=== PATIENT | female | born 1970 | race Caucasian/White ===

== ENCOUNTER → 2016-05-10 | Outpatient (CLI) | payer OTHER ==
[~2016-05-10] VITALS: Ht 165.1 cm; Wt 63.8 kg
[~2016-05-10] MED LIST: CRESTOR PO; IBUP600T26 PO; METF500T PO; MIDAZOLAM INJ 2 MG/2 ML VIAL (J2250) As Ordered ONE; NORCOTAB PO; NS 1,000 ML IV SCH; PROPOFOL 200 MG/20 ML VIAL As Ordered ONE; SIMV20TA2 PO; VITA500047 PO
--- NOTE | 2016-05-10 13:00 | ROOR ---
Patient Name: An Mercer Procedure Date: 05/10/2016 12:29 PM Date of : 1970 Age: 45 Room: [facility] Gender: Female Note Status: Finalized Procedure: Upper GI endoscopy Indications: Suspected Chavis's esophagus Providers: Khadar Collins DO Referring MD: SHAHNAZ MATAMOROS MD, GUANAKO GARZON NP Requesting Provider: Medicines: Propofol per Anesthesia Complications: No immediate complications. Estimated blood loss: None. Procedure: Pre-Anesthesia Assessment: - Prior to the procedure, a History and Physical was performed, and patient medications and allergies were reviewed. The patient is competent. The risks and benefits of the procedure and the sedation options and risks were discussed with the patient. All questions were answered and informed consent was obtained. Patient identification and proposed procedure were verified by the physician, the nurse, the anesthesiologist and the traffic technician in the endoscopy suite. Mental Status Examination: alert and oriented. Airway Examination: normal oropharyngeal airway and neck mobility. Respiratory Examination: clear to auscultation. CV Examination: normal. Prophylactic Antibiotics: The patient does not require prophylactic antibiotics. Prior Anticoagulants: The patient has taken no previous anticoagulant or antiplatelet agents. ASA Grade Assessment: III - A patient with severe systemic disease. After reviewing the risks and benefits, the patient was deemed in satisfactory condition to undergo the procedure. The anesthesia plan was to use monitored anesthesia care (MAC). Immediately prior to administration of medications, the patient was re-assessed for adequacy to receive sedatives. The heart rate, respiratory rate, oxygen saturations, blood pressure, adequacy of pulmonary ventilation, and response to care were monitored throughout the procedure. The physical status of the patient was re-assessed after the procedure. The Endoscope was introduced through the mouth, and advanced to the second part of duodenum. The upper GI endoscopy was accomplished without difficulty. The patient tolerated the procedure well. Findings: Mildly severe esophagitis with bleeding was found. Biopsies were taken with a cold forceps for histology. Mucosa was biopsied with a cold forceps for histology in 3 sections at intervals of 1 cm at the gastroesophageal junction. One specimen bottle was sent to pathology. Estimated blood loss was minimal. Diffuse mild inflammation characterized by congestion (edema) was found in the prepyloric region of the stomach. Biopsies were taken with a cold forceps for Helicobacter pylori testing. A small hiatal hernia was present. Impression: - Mildly severe esophagitis. Biopsied. - Gastritis. Biopsied. Recommendation: - Patient has a contact number available for emergencies. The signs and symptoms of potential delayed complications were discussed with the patient. Return to normal activities tomorrow. Written discharge instructions were provided to the patient. - Await pathology results. - Telephone my office for pathology results in 1 week. Khadar Collins DO 05/10/2016 1:00:18 PM This report has been signed electronically. Number of Addenda: 0 Note Initiated On: 05/10/2016 12:29 PM Estimated Blood Loss: Estimated blood loss: none.
[2016-05-10 13:25] VITALS: BP 120/70
== END ==
LOC: M OPP 11:33
PROVIDERS: ATTEND Surgery
DX: K21.9 Gastro-esophageal reflux disease without esophagitis (principal); R12 Heartburn; K20.9 Esophagitis, unspecified; K29.70 Gastritis, unspecified, without bleeding; K44.9 Diaphragmatic hernia without obstruction or gangrene; E78.5 Hyperlipidemia, unspecified; E11.9 Type 2 diabetes mellitus without complications; Z88.8 Allergy status to other drugs, medicaments and biological substances; Z79.84 Long term (current) use of oral hypoglycemic drugs; Z79.899 Other long term (current) drug therapy
CPT/HCPCS: 43239; 88305; 99156; J2250

== ENCOUNTER → 2016-05-30 | Outpatient (REF) | payer OTHER ==
[~2016-05-30] MED LIST changes: -MIDAZOLAM INJ 2 MG/2 ML VIAL (J2250) As Ordered ONE; -NS 1,000 ML IV SCH; -PROPOFOL 200 MG/20 ML VIAL As Ordered ONE
== END ==
LOC: M LAB REF 12:28
PROVIDERS: ATTEND Physician Assistant
DX: J02.9 Acute pharyngitis, unspecified (principal)

== ENCOUNTER → 2016-06-12 | Outpatient (CLI) | payer OTHER | LOC: M SLEEP HO 09:10 | PROVIDERS: ATTEND Nurse Practitioner Adult Health | DX: G47.30 Sleep apnea, unspecified (principal) ==

== ENCOUNTER 2016-11-05 17:55 | Emergency (ER) | payer OTHER ==
[~2016-11-05] VITALS: Ht 165.1 cm; Wt 94.0 kg
[~2016-11-05 17:55] MED LIST changes: -METF500T PO; +METF500T13 PO
[2016-11-05] MEDS ORDERED: OMEP20CA3 (18:07)
[2016-11-05] MEDS ORDERED: NS 1,000 ML IV ONE (21:30)
[2016-11-05 22:24] LABS: BASO % 0.3 % (0.0-1.0); EOS # 0.1 K/mm3 (0.0-0.50); EOS % 1.2 % (0.0-3.0); LARGE UNSTAINED CELL # 0.1 K/mm3 (0.0-0.4); LARGE UNSTAINED CELL % 1.9 % (0.0-4.0); LYMPH # 2.2 K/mm3 (1.5-4.5); LYMPH % 26.7 % (24.0-44.0); MEAN CORPUSCULAR HEMOGLOBIN 30.2 pg (27.0-33.0); MEAN CORPUSCULAR HGB CONC 34.6 g/dl (32.0-36.5); MEAN CORPUSCULAR VOLUME 87.2 fl (80.0-96.0); MONO # 0.5 K/mm3 (0.0-0.8); MONO % 6.7 % (0.0-5.0); NEUTROPHILS # 4.8 K/mm3 (1.8-7.7); NEUTROPHILS % 63.2 % (36.0-66.0); PLATELET COUNT, AUTOMATED 264 k/mm3 (150-450); RED CELL DISTRIBUTION WIDTH 12.5 % (11.5-14.5); WHITE BLOOD COUNT 7.6 K/mm3 (4.0-10.0)
[2016-11-05 22:34] LABS: ALBUMIN 4.4 GM/DL (3.2-5.2); ALBUMIN/GLOBULIN RATIO 1.29 (1.00-1.93); ALKALINE PHOSPHATASE 99 U/L (45-117); ALT/SGPT 101 U/L (12-78); AMYLASE 80 U/L (25-115); ANION GAP 10 MEQ/L (8-16); AST/SGOT 43 U/L (15-37); BILIRUBIN,DIRECT 0.3 MG/DL (0.0-0.2); BLOOD UREA NITROGEN 11 MG/DL (7-18); CALCIUM LEVEL 9.2 MG/DL (8.5-10.1); CARBON DIOXIDE LEVEL 27 MEQ/L (21-32); CHLORIDE LEVEL 97 MEQ/L (98-107); CREATININE FOR GFR 0.67 MG/DL (0.55-1.02); GLOMERULAR FILTRATION RATE > 60.0 (>58); GLUCOSE, FASTING 87 MG/DL (70-105); POTASSIUM SERUM 3.3 MEQ/L (3.5-5.1); SODIUM LEVEL 134 MEQ/L (136-145); TOTAL PROTEIN 7.8 GM/DL (6.4-8.2)
[2016-11-05 23:28] VITALS: BP 124/83
--- NOTE | 2016-11-06 00:33 | REP ---
Clinical: Epigastric and left upper quadrant abdominal pain. Technique: Upright view of the chest with supine and upright views of the abdomen and pelvis. Findings: Frontal upright view of the chest demonstrates no acute cardiopulmonary process or free air below the diaphragm to suspect pneumoperitoneum. Supine and upright views of the abdomen and pelvis demonstrate nonspecific bowel gas pattern without obstruction or perforation. No organomegaly. Calcifications in the pelvis likely represent phleboliths. Skeletal structures normal for age. Impression: Nonspecific bowel gas pattern. Signed by Valentin Metcalf MD 11/06/2016 12:25 A
== END 2016-11-05 23:30 | disposition home or self-care (01) ==
LOC: M ED 17:55
DX: K29.00 Acute gastritis without bleeding (principal); Z98.84 Bariatric surgery status; Z88.1 Allergy status to other antibiotic agents

== ENCOUNTER 2017-03-11 20:34 | Inpatient (IN) | payer OTHER ==
[~2017-03-11] VITALS: Ht 165.1 cm; Wt 65.9 kg
[2017-03-11] MEDS: OMEPRAZOLE 20 MG CAP PO SCH (04:30)
[~2017-03-11 20:34] MED LIST changes: -B-12; -B121000T PO; -BIOT50005 SL; -MULTCAP11 PO; -VITMTA PO
[2017-03-11] MEDS ORDERED: BIOT50005 SL (20:53)
[2017-03-11] MEDS ORDERED: B-12 (20:53)
[2017-03-11] MEDS ORDERED: MULTCAP11 PO (20:53)
[2017-03-11] MEDS: POTASSIUM CHLORIDE 10 MEQ SR TABLET PO ONE ×2 (21:30→22:30)
[2017-03-11 22:18] LABS: BASO % 0.5 % (0.0-1.0); EOS # 0.1 10^3/uL (0.0-0.50); EOS % 1.4 % (0.0-3.0); IMMATURE GRANULOCYTE % 0.2 % (0-0); LYMPH # 2.3 10^3/uL (1.5-4.5); LYMPH % 40.6 % (24.0-44.0); MEAN CORPUSCULAR HEMOGLOBIN 30.2 pg (27.0-33.0); MEAN CORPUSCULAR HGB CONC 34.7 g/dl (32.0-36.5); MEAN CORPUSCULAR VOLUME 86.9 fl (80.0-96.0); MONO # 0.5 10^3/uL (0.0-0.8); MONO % 8.7 % (0.0-5.0); NEUTROPHILS # 2.8 10^3/uL (1.8-7.7); NEUTROPHILS % 48.6 % (36.0-66.0); PLATELET COUNT, AUTOMATED 163 10^3/uL (150-450); RED CELL DISTRIBUTION WIDTH 12.4 % (11.5-14.5); WHITE BLOOD COUNT 5.7 10^3/uL (4.0-10.0)
[2017-03-11 22:42] LABS: ANION GAP 8 MEQ/L (8-16); BLOOD UREA NITROGEN 10 MG/DL (7-18); CALCIUM LEVEL 8.8 MG/DL (8.5-10.1); CARBON DIOXIDE LEVEL 32 MEQ/L (21-32); CHLORIDE LEVEL 102 MEQ/L (98-107); CREATININE FOR GFR 0.45 MG/DL (0.55-1.02); GLOMERULAR FILTRATION RATE > 60.0 (>58); GLUCOSE, FASTING 109 MG/DL (70-105); MAGNESIUM LEVEL 2.3 MG/DL (1.8-2.4); POTASSIUM SERUM 2.9 MEQ/L (3.5-5.1); SODIUM LEVEL 142 MEQ/L (136-145)
[2017-03-11] MEDS ORDERED: POTASSIUM CHLORIDE 10 MEQ SR TABLET PO ONE (23:45)
[2017-03-12 01:59] LABS: ANION GAP 6 MEQ/L (8-16); BLOOD UREA NITROGEN 10 MG/DL (7-18); CALCIUM LEVEL 8.4 MG/DL (8.5-10.1); CARBON DIOXIDE LEVEL 33 MEQ/L (21-32); CHLORIDE LEVEL 102 MEQ/L (98-107); GLOMERULAR FILTRATION RATE > 60.0 (>58); GLUCOSE, FASTING 107 MG/DL (70-105); POTASSIUM SERUM 2.7 MEQ/L (3.5-5.1); SODIUM LEVEL 141 MEQ/L (136-145)
[2017-03-12] MEDS ORDERED: KCL 10MEQ IN 100ML SWI (KRUN) 10 MEQ in APPROPRIATE DILUENT 1 EA IV ONE ×2 (02:30)
[2017-03-12] MEDS ORDERED: B121000T PO (02:40)
[2017-03-12] MEDS ORDERED: VITMTA PO (02:40)
[2017-03-12] MEDS ORDERED: ACETAMINOPHEN TAB 650MG DOSE (2X325MG) PO PRN (03:45)
--- NOTE | 2017-03-12 05:03 | HPE ---
DATE OF ADMISSION: 03/12/2017 The patient, An Mercer, is a 46-year-old female. Patient has a previous medical history of gastric bypass, type 2 diabetes mellitus not currently on treatment for it. This I get from the records. She did not mention this when I asked her. Family history of father with heart disease and mother with diabetes, hypertension. Patient is a nonsmoker, non-drug abuser, does not use alcohol to excess. Patient's surgical history is tubal ligation 1993, hysterectomy in 2013, diverted septum repair in 1989 and the above mentioned gastric bypass. HISTORY OF PRESENT ILLNESS: The patient comes in after being sent by her primary medical doctor (PMD), who did some followup labs and found her potassium to be low. While in the emergency department (ED), patient was found to have a low potassium, initially improved on oral, did not, however, continue to improve. Therefore, is being admitted for intravenous (IV) re-supplementation. REVIEW OF SYSTEMS: Patient has no acute complaints on 10-system review. When I came in to see patient, patient was resting comfortably and in no distress. Temperature is 98.2, pulse 64, respiratory rate 16, blood pressure 119/72, pulse oximetry 100% on room air. First EKG showed aberrant beats. Followup after replacement of potassium is normal sinus rhythm. Patient is alert and oriented times three with normal affect and normal mood. Cranial nerves II-XII grossly intact. Extraocular muscles intact. Pupils equal, round, and reactive to light and accommodation. Neck is supple with no meningeal signs. Patient is S1, S2, regular rate. No murmur, rub or gallop. Good inspiratory, expiratory effort. No wheezes, rhonchi or rales. Patient with soft, nontender abdomen. Patient with muscle strength 5/5 in all four major extremities. Skin is warm and dry. No apparent lymphadenopathy. LABORATORY: Hematology grossly normal. Chemistry shows initial potassium of 2.9. Patient otherwise normal findings. Followup 2.7. Magnesium is normal at 2.3. No imaging done. No imaging was deemed necessary. ASSESSMENT AND PLAN: 46-year-old female who comes in with referral from family doctor after finding of hypokalemia on regular followup. Patient on intravenous (IV) potassium after failing oral. Patient to be monitored every 6 hours with basic metabolic panel (BMP). Magnesium within normal limits. Patient currently on 40 mEq normal saline (NS) D5. May give more as clinically indicated. Patient to be on telemetry monitoring given initially abnormal EKG and need for IV replacement of potassium. Patient for continued observation. I first saw her on 03/12/2017. Deep venous thrombosis (DVT) prophylaxis is not indicated. Gastrointestinal (GI) prophylaxis is not indicated.
[2017-03-12] MEDS: KCL 40MEQ IN D5/NS 1000ML 1,000 ML IV SCH ×2 (05:15→14:52)
[2017-03-12] MEDS ORDERED: POTASSIUM CHLORIDE 10 MEQ SR TABLET PO ONE ×2 (07:00→14:45)
[2017-03-12 07:32] LABS: ALBUMIN 3.3 GM/DL (3.2-5.2); ALBUMIN/GLOBULIN RATIO 1.27 (1.00-1.93); ALKALINE PHOSPHATASE 56 U/L (45-117); ALT/SGPT 18 U/L (12-78); ANION GAP 8 MEQ/L (8-16); AST/SGOT 21 U/L (7-37); BILIRUBIN,TOTAL 0.8 MG/DL (0.2-1.0); BLOOD UREA NITROGEN 9 MG/DL (7-18); CALCIUM LEVEL 8.4 MG/DL (8.5-10.1); CARBON DIOXIDE LEVEL 32 MEQ/L (21-32); CHLORIDE LEVEL 104 MEQ/L (98-107); CREATININE FOR GFR 0.41 MG/DL (0.55-1.02); GLOMERULAR FILTRATION RATE > 60.0 (>58); GLUCOSE, FASTING 114 MG/DL (70-105); MAGNESIUM LEVEL 2.3 MG/DL (1.8-2.4); POTASSIUM SERUM 2.9 MEQ/L (3.5-5.1); SODIUM LEVEL 144 MEQ/L (136-145); TOTAL PROTEIN 5.9 GM/DL (6.4-8.2)
[2017-03-12 08:00] VITALS: BP 120/74
--- NOTE | 2017-03-12 09:15 | ECGEPIP ---
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
--- NOTE | 2017-03-12 09:21 | ECGEPIP ---
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
[2017-03-12] MEDS: MULTIVITAMINS/MINERALS THERAP 1 TAB PO SCH (09:48)
[2017-03-12] MEDS: POTASSIUM CHLORIDE 10 MEQ SR TABLET PO SCH ×2 (09:48→21:46)
[2017-03-12 12:00] VITALS: BP 129/72
[2017-03-12 13:52] LABS: ANION GAP 6 MEQ/L (8-16); BLOOD UREA NITROGEN 7 MG/DL (7-18); CALCIUM LEVEL 8.4 MG/DL (8.5-10.1); CARBON DIOXIDE LEVEL 31 MEQ/L (21-32); CHLORIDE LEVEL 107 MEQ/L (98-107); CREATININE FOR GFR 0.35 MG/DL (0.55-1.02); GLOMERULAR FILTRATION RATE > 60.0 (>58); GLUCOSE, FASTING 125 MG/DL (70-105); POTASSIUM SERUM 3.3 MEQ/L (3.5-5.1); SODIUM LEVEL 144 MEQ/L (136-145)
[2017-03-12 17:25] VITALS: BP 124/76
[2017-03-12 20:00] VITALS: BP 109/72
[2017-03-12] MEDS: OMEPRAZOLE 20 MG CAP PO SCH (21:46)
[2017-03-13] VITALS: BP 101/62
[2017-03-13] MEDS: KCL 40MEQ IN D5/NS 1000ML 1,000 ML IV SCH (01:45)
[2017-03-13 08:00] VITALS: BP 122/57
[2017-03-13] MEDS ORDERED: POTASSIUM CHLORIDE 10 MEQ SR TABLET PO SCH (08:00)
[2017-03-13] MEDS: MULTIVITAMINS/MINERALS THERAP 1 TAB PO SCH (08:15)
[2017-03-13 08:18] LABS: ALBUMIN 2.9 GM/DL (3.2-5.2); ALBUMIN/GLOBULIN RATIO 1.04 (1.00-1.93); ALKALINE PHOSPHATASE 40 U/L (45-117); ALT/SGPT 16 U/L (12-78); ANION GAP 5 MEQ/L (8-16); AST/SGOT 17 U/L (7-37); BILIRUBIN,TOTAL 0.9 MG/DL (0.2-1.0); BLOOD UREA NITROGEN 5 MG/DL (7-18); CALCIUM LEVEL 8.7 MG/DL (8.5-10.1); CARBON DIOXIDE LEVEL 27 MEQ/L (21-32); CHLORIDE LEVEL 117 MEQ/L (98-107); CREATININE FOR GFR 0.37 MG/DL (0.55-1.02); GLOMERULAR FILTRATION RATE > 60.0 (>58); GLUCOSE, FASTING 100 MG/DL (70-105); MAGNESIUM LEVEL 2.3 MG/DL (1.8-2.4); POTASSIUM SERUM 4.3 MEQ/L (3.5-5.1); SODIUM LEVEL 149 MEQ/L (136-145); TOTAL PROTEIN 5.7 GM/DL (6.4-8.2)
[2017-03-13] MEDS: POTASSIUM CHLORIDE 10 MEQ SR TABLET PO SCH (09:38)
--- NOTE | 2017-03-13 16:39 | DSES ---
DATE OF ADMISSION: 03/12/2017 DATE OF DISCHARGE: 03/13/2017 PRIMARY DISCHARGE DIAGNOSES: 1. Hypokalemia. 2. History of gastric bypass. 3. Type 2 diabetes, not on medications. DISCHARGE MEDICATIONS: - Biotin 10,000 mcg sublingual daily - B12 1000 mcg daily - multivitamin one tablet daily - Prilosec 20 mg at night HOSPITAL COURSE: This is a 46-year-old female who presented to the emergency room with abnormal blood test, encouraged by her primary care provider to be evaluated and treated for hypokalemia with a potassium level of 2.9, magnesium was 2.3. The patient was in good health and had no complaints. She was given IV potassium. Repeat beats per minute every 6 hours and potassium tablets were supplemented. Magnesium was within normal limits. She was kept on telemetry with EKG showing frequent PVCs, nonspecific ST-T wave changes. Repeat EKG showing sinus rhythm with nonspecific ST-T changes. The patient's potassium improved to 4.3 on discharge. The patient is discharged in stable condition. Followup with primary care physician as an outpatient. LABORATORY DATA AT DISCHARGE: White count 5.7, hemoglobin 13,hematocrit 38, platelets 163. Sodium 149, potassium 4.3, chloride 117, bicarbonate 27, BUN 5, creatinine 0.37, glucose of 100, magnesium of 2.3. Time spent on discharge: 30 minutes. [facility]
== END 2017-03-13 10:25 | disposition home or self-care (01) | DRG 425 ==
LOC: M ED 20:34 → M ED INP 03-12 03:37 → M PED 03-12 17:09
PROVIDERS: ADMIT Internal Medicine; ATTEND General Practice
DX: E87.6 Hypokalemia (principal); Z79.899 Other long term (current) drug therapy

== ENCOUNTER → 2017-03-11 | Outpatient (CLI) | payer OTHER ==
[~2017-03-11] MED LIST changes: +B-12; +B121000T PO; +BIOT50005 SL; +MULTCAP11 PO; +OMEP20CA3 PO; +VITMTA PO
[2017-03-11 18:07] LABS: BASO % 0.6 % (0.0-1.0); EOS # 0.1 10^3/uL (0.0-0.50); EOS % 1.9 % (0.0-3.0); IMMATURE GRANULOCYTE % 0.2 % (0-0); LYMPH # 1.8 10^3/uL (1.5-4.5); MEAN CORPUSCULAR HEMOGLOBIN 29.6 pg (27.0-33.0); MEAN CORPUSCULAR HGB CONC 33.1 g/dl (32.0-36.5); MEAN CORPUSCULAR VOLUME 89.3 fl (80.0-96.0); MONO # 0.4 10^3/uL (0.0-0.8); MONO % 8.4 % (0.0-5.0); NEUTROPHILS # 2.3 10^3/uL (1.8-7.7); NEUTROPHILS % 49.9 % (36.0-66.0); PLATELET COUNT, AUTOMATED 174 10^3/uL (150-450); RED CELL DISTRIBUTION WIDTH 12.8 % (11.5-14.5); WHITE BLOOD COUNT 4.7 10^3/uL (4.0-10.0)
[2017-03-11 19:19] LABS: ALBUMIN 3.7 GM/DL (3.2-5.2); ALBUMIN/GLOBULIN RATIO 1.48 (1.00-1.93); ALKALINE PHOSPHATASE 59 U/L (45-117); ALT/SGPT 20 U/L (12-78); ANION GAP 10 MEQ/L (8-16); AST/SGOT 21 U/L (7-37); BILIRUBIN,TOTAL 1.3 MG/DL (0.2-1.0); BLOOD UREA NITROGEN 10 MG/DL (7-18); CALCIUM LEVEL 8.7 MG/DL (8.5-10.1); CARBON DIOXIDE LEVEL 34 MEQ/L (21-32); CHLORIDE LEVEL 100 MEQ/L (98-107); CHOLESTEROL LEVEL 253 MG/DL (<200); CREATININE FOR GFR 0.47 MG/DL (0.55-1.02); GLOMERULAR FILTRATION RATE > 60.0 (>58); GLUCOSE, FASTING 91 MG/DL (70-105); POTASSIUM SERUM 2.4 MEQ/L (3.5-5.1); SODIUM LEVEL 144 MEQ/L (136-145); T UPTAKE 31 % (30-39); THYROXINE (T4) 10.2 UG/DL (4.5-12.0); TOTAL PROTEIN 6.2 GM/DL (6.4-8.2); TRIGLYCERIDES LEVEL 107 MG/DL (<150)
== END ==
LOC: M WUC 09:38
PROVIDERS: ATTEND Nurse Practitioner Adult Health
DX: E11.9 Type 2 diabetes mellitus without complications (principal); E78.5 Hyperlipidemia, unspecified

== ENCOUNTER → 2017-03-22 | Outpatient (CLI) | payer OTHER ==
[~2017-03-22] MED LIST changes: +B-12; +B121000T PO; +BIOT50005 SL; +MULTCAP11 PO; +VITMTA PO
== END ==
LOC: M WUC 16:44
PROVIDERS: ATTEND Nurse Practitioner Adult Health
DX: E87.6 Hypokalemia (principal)

== ENCOUNTER → 2017-05-03 | Outpatient (CLI) | payer OTHER | LOC: M WHC 09:05 | DX: Z12.31 Encounter for screening mammogram for malignant neoplasm of breast (principal); Z78.0 Asymptomatic menopausal state; Z92.0 Personal history of contraception | CPT/HCPCS: 77067 ==

== ENCOUNTER → 2017-05-14 | Outpatient (CLI) | payer OTHER ==
[2017-05-14 20:03] LABS: BASO % 0.5 % (0.0-1.0); EOS # 0.1 10^3/uL (0.0-0.50); EOS % 1.7 % (0.0-3.0); HEMATOCRIT 37.8 % (36.0-47.0); HEMOGLOBIN 12.4 g/dl (12.0-16.0); IMMATURE GRANULOCYTE % 0.2 % (0-0); LYMPH # 2.5 10^3/uL (1.5-4.5); LYMPH % 43.4 % (24.0-44.0); MEAN CORPUSCULAR HEMOGLOBIN 29.2 pg (27.0-33.0); MEAN CORPUSCULAR HGB CONC 32.8 g/dl (32.0-36.5); MEAN CORPUSCULAR VOLUME 89.2 fl (80.0-96.0); MONO # 0.4 10^3/uL (0.0-0.8); MONO % 7.1 % (0.0-5.0); NEUTROPHILS # 2.7 10^3/uL (1.8-7.7); NEUTROPHILS % 47.1 % (36.0-66.0); PLATELET COUNT, AUTOMATED 139 10^3/uL (150-450); RED BLOOD COUNT 4.24 10^6/uL (4.00-5.40); WHITE BLOOD COUNT 5.8 10^3/uL (4.0-10.0)
[2017-05-14 20:25] LABS: ANION GAP 6 MEQ/L (8-16); BLOOD UREA NITROGEN 14 MG/DL (7-18); CALCIUM LEVEL 8.2 MG/DL (8.5-10.1); CARBON DIOXIDE LEVEL 32 MEQ/L (21-32); CHLORIDE LEVEL 106 MEQ/L (98-107); CREATININE FOR GFR 0.51 MG/DL (0.55-1.30); GLOMERULAR FILTRATION RATE > 60.0 (>58); GLUCOSE, FASTING 96 MG/DL (70-100); POTASSIUM SERUM 3.6 MEQ/L (3.5-5.1); SODIUM LEVEL 144 MEQ/L (136-145)
== END ==
LOC: M WUC 16:16
DX: E87.6 Hypokalemia (principal); Z98.84 Bariatric surgery status; K22.70 Barrett's esophagus without dysplasia; R94.5 Abnormal results of liver function studies
CPT/HCPCS: 80048

== ENCOUNTER 2017-10-01 09:23 | Emergency (ER) | payer OTHER | END 2017-10-01 11:23 | disposition home or self-care (01) | LOC: M ED 09:23 | DX: S30.0XXA Contusion of lower back and pelvis, initial encounter (principal); W19.XXXA Unspecified fall, initial encounter; Y92.830 Public park as the place of occurrence of the external cause; Y93.89 Activity, other specified; Y99.9 Unspecified external cause status; E78.00 Pure hypercholesterolemia, unspecified; Z98.84 Bariatric surgery status; Z79.899 Other long term (current) drug therapy; Z88.8 Allergy status to other drugs, medicaments and biological substances | CPT/HCPCS: 72220 ==

== ENCOUNTER 2017-10-05 15:16 | Emergency (ER) | payer OTHER | END 2017-10-05 16:34 | disposition home or self-care (01) | LOC: M ED 15:16 | DX: S20.212A Contusion of left front wall of thorax, initial encounter (principal); W19.XXXA Unspecified fall, initial encounter; Y92.9 Unspecified place or not applicable; Y93.9 Activity, unspecified; Y99.9 Unspecified external cause status; E11.9 Type 2 diabetes mellitus without complications; I10 Essential (primary) hypertension; Z98.84 Bariatric surgery status; Z79.899 Other long term (current) drug therapy; Z88.0 Allergy status to penicillin | CPT/HCPCS: 71046 ==

== ENCOUNTER → 2018-02-11 | Outpatient (REF) | payer OTHER ==
[2018-02-11 13:38] LABS: HEMATOCRIT 40.5 % (36.0-47.0); HEMOGLOBIN 13.5 g/dl (12.0-15.5); MEAN CORPUSCULAR HGB CONC 33.3 g/dl (32.0-36.5); MEAN CORPUSCULAR VOLUME 86.9 fl (80.0-96.0); PLATELET COUNT, AUTOMATED 181 10^3/uL (150-450); RED BLOOD COUNT 4.66 10^6/uL (4.00-5.40); WHITE BLOOD COUNT 5.5 10^3/uL (4.0-10.0)
[2018-02-11 13:39] LABS: ALBUMIN/GLOBULIN RATIO 1.25 (1.00-1.93); ALKALINE PHOSPHATASE 91 U/L (45-117); ALT/SGPT 45 U/L (12-78); ANION GAP 7 MEQ/L (8-16); AST/SGOT 33 U/L (7-37); BILIRUBIN,TOTAL 0.7 MG/DL (0.2-1.0); BLOOD UREA NITROGEN 14 MG/DL (7-18); CALCIUM LEVEL 8.9 MG/DL (8.5-10.1); CARBON DIOXIDE LEVEL 31 MEQ/L (21-32); CHLORIDE LEVEL 105 MEQ/L (98-107); CHOLESTEROL LEVEL 271 MG/DL (<200); CHOLESTEROL RISK RATIO 4.044 (<5); CREATININE FOR GFR 0.63 MG/DL (0.55-1.30); GLOMERULAR FILTRATION RATE > 60.0 (>58); GLUCOSE, FASTING 100 MG/DL (70-100); HDL CHOLESTEROL 67 MG/DL (>40); LDL CHOLESTEROL 185 MG/DL (<100); NON-HDL-C 204 MG/DL; POTASSIUM SERUM 3.8 MEQ/L (3.5-5.1); SODIUM LEVEL 143 MEQ/L (136-145); TOTAL PROTEIN 7.2 GM/DL (6.4-8.2); TRIGLYCERIDES LEVEL 93 MG/DL (<150)
[2018-02-11 13:41] LABS: TOTAL 25(OH) VITAMIN D 31.3 NG/ML (30.0-100.0)
[2018-02-11 13:44] LABS: ESTIMATED AVERAGE GLUCOSE 114 MG/DL (60-110); HEMOGLOBIN A1c 5.6 %
== END ==
LOC: M SFHCPLAZ 10:10
DX: Z00.00 Encounter for general adult medical examination without abnormal findings (principal); E78.2 Mixed hyperlipidemia; E55.9 Vitamin D deficiency, unspecified; Z98.84 Bariatric surgery status; Z83.3 Family history of diabetes mellitus

== ENCOUNTER 2019-02-02 04:13 | Observation (INO) | payer OTHER ==
[~2019-02-02] VITALS: Ht 165.1 cm; Wt 66.8 kg
[~2019-02-02 04:13] MED LIST changes: +HYDR-3715 PO; -OMEP20CA3 PO; +OMEP20CA4 PO
[2019-02-02] MEDS ORDERED: VITA500045 (04:18)
[2019-02-02] MEDS ORDERED: OMEP-218 PO (04:18)
[2019-02-02] MEDS ORDERED: ONDANSETRON 4MG/2ML VIAL (J2405) As Ordered ONE (04:30)
[2019-02-02 04:34] LABS: BASO # 0.1 10^3/uL (0.0-0.2); BASO % 0.6 % (0.0-1.0); EOS # 0.5 10^3/uL (0.0-0.5); EOS % 4.9 % (0.0-3.0); HEMATOCRIT 41.6 % (36.0-47.0); HEMOGLOBIN 13.9 g/dl (12.0-15.5); LYMPH % 42.6 % (24.0-44.0); MEAN CORPUSCULAR HEMOGLOBIN 28.7 pg (27.0-33.0); MEAN CORPUSCULAR HGB CONC 33.4 g/dl (32.0-36.5); MONO # 0.7 10^3/uL (0.0-0.8); MONO % 7.1 % (0.0-5.0); NEUTROPHILS # 4.2 10^3/uL (1.5-8.5); NEUTROPHILS % 44.7 % (36.0-66.0); PLATELET COUNT, AUTOMATED 214 10^3/uL (150-450); RED BLOOD COUNT 4.84 10^6/uL (4.00-5.40); WHITE BLOOD COUNT 9.4 10^3/uL (4.0-10.0)
[2019-02-02] MEDS ORDERED: KETOROLAC 30 MG/ML VIAL (J1885) As Ordered ONE (04:42)
[2019-02-02] MEDS ORDERED: KETOROLAC 30 MG/ML VIAL (J1885) IV ONE (04:45)
[2019-02-02] MEDS ORDERED: ONDANSETRON 4MG/2ML VIAL (J2405) IV ONE (04:45)
[2019-02-02] MEDS ORDERED: NS 1,000 ML IV ONE (04:45)
[2019-02-02 05:20] LABS: ALT/SGPT 32 U/L (12-78); BILIRUBIN,DIRECT < 0.1 MG/DL (0.0-0.2); BILIRUBIN,TOTAL 0.4 MG/DL (0.2-1.0); BLOOD UREA NITROGEN 10 MG/DL (7-18); CARBON DIOXIDE LEVEL 27 MEQ/L (21-32); CHLORIDE LEVEL 104 MEQ/L (98-107); CREATININE FOR GFR 0.77 MG/DL (0.55-1.30); GLOMERULAR FILTRATION RATE > 60.0 (>51); GLUCOSE, FASTING 150 MG/DL (70-100); LIPASE 117 U/L (73-393); POTASSIUM SERUM 2.8 MEQ/L (3.5-5.1); SODIUM LEVEL 140 MEQ/L (136-145); TOTAL PROTEIN 7.2 GM/DL (6.4-8.2)
[2019-02-02 05:38] LABS: MAGNESIUM LEVEL 2.3 MG/DL (1.8-2.4)
[2019-02-02] MEDS: MORPHINE 4 MG/ML 1ML VIAL/SYRINGE (J2270) IV PRN ×2 (06:30→09:24)
[2019-02-02] MEDS ORDERED: POTASSIUM CHLORIDE 10 MEQ SR TABLET PO ONE (07:00)
--- NOTE | 2019-02-02 07:26 | REPVR ---
PROCEDURE INFORMATION: Exam: CT Abdomen And Pelvis Without Contrast Exam date and time: 02/02/2019 6:29 AM Clinical history: 48 years old, female; Abdominal pain; Flank; Left; Additional info: Left flank pain, hematuria TECHNIQUE: Imaging protocol: Computed tomography of the abdomen and pelvis without contrast. Radiation optimization: All CT scans at this facility use at least one of these dose optimization techniques: automated exposure control; mA and/or kV adjustment per patient size (includes targeted exams where dose is matched to clinical indication); or iterative reconstruction. COMPARISON: US PELVIC NON-OB COMPLETE 03/30/2013 6:50 PM (report not provided) FINDINGS: Limitations: Evaluation is somewhat limited by lack of IV contrast. Lungs: The visualized lung bases are essentially clear. Liver: Grossly unremarkable. Gallbladder and bile ducts: No gallstones are evident, but ultrasound would be more sensitive. No gross biliary ductal dilatation. Pancreas: Grossly unremarkable. Spleen: Grossly unremarkable. Adrenals: Grossly unremarkable. Kidneys and ureters: Mild left-sided hydroureteronephrosis secondary to a 3 x 3 x 4 mm distal left ureteral stone, just proximal to the ureterovesical junction. The left kidney also contains a punctate nonobstructing stone. There is no right-sided hydronephrosis or stone, and the kidneys are otherwise grossly unremarkable. Stomach and bowel: There are operative changes of gastric bypass. The unopacified small bowel is not significantly distended to suggest obstruction. Mild scattered colonic diverticulosis without evidence for diverticulitis. Appendix: The appendix appears normal. Intraperitoneal space: No free air or significant free fluid. Vasculature: Unremarkable. No abdominal aortic aneurysm. Lymph nodes: No gross pathologic lymphadenopathy. Bladder: Unremarkable as visualized. Reproductive: No gross adnexal abnormality is apparent, but ultrasound would be more appropriate in this regard. Bones/joints: Degenerative changes involve the spine and hips. Sclerotic density in the right superior pubic ramus is likely a bone island. Soft tissues: Unremarkable. IMPRESSION: 1. Mild left-sided hydroureteronephrosis secondary to a 3 x 3 x 4 mm distal left ureteral stone, just proximal to the ureterovesical junction. 2. Additional punctate nonobstructing left renal stone. 3. Mild scattered colonic diverticulosis without evidence for diverticulitis. Electronically signed by: Kyaw Vidales On 02/02/2019 07:25:53 AM
[2019-02-02] MEDS ORDERED: KCL 10MEQ/100ML SWI (KRUN) 10 MEQ in IV 1 EA IV ONE (07:45)
--- NOTE | 2019-02-02 07:59 | ECGEPIP ---
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
[2019-02-02] MEDS ORDERED: HM P99TA PO (08:15)
[2019-02-02] MEDS ORDERED: ACETAMINOPHEN TAB 650MG DOSE (2X325MG) PO ONE (08:45)
[2019-02-02] MEDS: ONDANSETRON 4MG/2ML VIAL (J2405) IV PRN (08:55)
[2019-02-02] MEDS ORDERED: TAMSULOSIN 0.4 MG CAP PO ONE (09:15)
[2019-02-02] MEDS ORDERED: MORPHINE 4 MG/ML 1ML VIAL/SYRINGE (J2270) IV PRN (10:00)
[2019-02-02] MEDS ORDERED: PERCOCET 5MG/325MG TAB PO PRN ×2 (10:00)
[2019-02-02] MEDS ORDERED: NS 1,000 ML IV SCH (10:00)
[2019-02-02] MEDS ORDERED: CALCIUM CARBONATE 500 MG CHEW U/D PO PRN (10:00)
--- NOTE | 2019-02-02 10:17 | HPEPDOC ---
[facility] Medical History & Physical Date of Admission Feb 02, 2019 Date of Service: Feb 02, 2019 History and Physical CHIEF COMPLAINT: Left-sided abdominal pain HISTORY OF PRESENT ILLNESS: This is a 48-year-old female with past medical history of gastric bypass surgery who presents with 2 day history of progressively worsening left inguinal pain radiating up to her left flank associated with nausea but no claudia vomiting. She has no specific urine is more dark she denies any fevers or chills or contacts changes in dietary habits. She doesn't she is normally on potassium supplementation and only her potassium was severely low dysuria or become symptomatic. She developed her need potassium supplementation: Gastric bypass surgery. She tells me she took her potassium replaced yesterday but otherwise she has not taken it in several weeks. At this time. Her pain is improved but not resolved. Otherwise patient denies weight loss, hair loss, headache, visual changes, chest pain, shortness of breath, cough, diarrhea, muscle aches, worsening arthritis, change in mood PAST MEDICAL HISTORY: 1 hypokalemia secondary to GI losses related to gastric bypass surgery. 2 anxiety. 3. Esophagitis. HOME MEDICATIONS: Please see below. ALLERGIES: Please see below PAST SURGICAL HISTORY: 1 gastric bypass. 2 deviated septum repair. 3 tubal ligation 4 wisdom tooth extraction 5 hysterectomy. SOCIAL HISTORY: Lives with: , Tobacco use: Denies. ETOH: 3 drinks per year, Illicit drug use: Denies, CODE STATUS: Full code FAMILY HISTORY:Reviewed and noncontributory REVIEW OF SYSTEMS: 10 systems reviewed and negative other than HPI PHYSICAL EXAMINATION: VITAL SIGNS: Temperature 97.1, pulse 83, respiratory rate 17 , blood pressure 167/95, pulse oximetry 100 % on room air. GENERAL: Pleasant middle-aged female lying on her right side she appears mildly uncomfortable sitting up in bed awake alert oriented speaking in complete sentences no acute distress HEENT: Moist mucous membranes no elevation in CVP CARDIOVASCULAR: S1 S2 regular no additional heart sounds appreciated. RESPIRATORY: Clear to auscultation bilaterally. ABDOMINAL: Bowel sounds present abdomen soft and nontender, mild tenderness to palpation in the left inguinal region there is no CVA tenderness EXTREMITIES: No clubbing cyanosis or edema NEUROLOGICAL: Spontaneously moves all 4 extremities cranial 2 through 12 grossly intact no gross focal deficits appreciated PSYCHOLOGICAL: Appropriate LABORATORY DATA: See below. MICROBIOLOGY: Please see below. IMAGING: CT scan abdomen and pelvis:1. Mild left-sided hydroureteronephrosis secondary to a 3 x 3 x 4 mm distal left ureteral stone, just proximal to the ureterovesical junction. 2. Additional punctate nonobstructing left renal stone. 3. Mild scattered colonic diverticulosis without evidence for diverticulitis. ASSESSMENT & PLAN: This is a 48-year-old female with left-sided obstructing nephrolithiasis with hydroureter nephrosis. PROBLEMS: 1 left-sided obstructing hydroureteronephrosis secondary to nephrolithiasis: Relatively small stone which would likely spontaneously pass, we'll provide her with NSAID ketorolac as well as Flomax in order to help her process. I will also provided with by mouth Percocet and IV morphine for breakthrough pain. Lungs clear liquid diet as well as IV fluids. I spoke with urology who will see the patient consultation and I agree likely no intervention is needed. The patient strain her urine for stone to be sent to pathology. Urology suggested initiation of Tums given her history of past gastric bypass surgery 2 hypokalemia: Chronic patient is normally supposed to be on supplementation she admits to being noncompliant with this. She tells me she does not have any symptoms of it recently and knows when it is severely low when she has symptoms at that point. She is not having any symptoms at this time. She is receiving by mouth as well as IV supplementation. I'll provide her with KCl at 75 mL an hour with 20 mEq per liter. Also recheck a BMP later this afternoon to ensure it is rising. She was monitored on telemetry although my suspicion for any adverse events related to her potassium was quite low. 3. Chavis's Esophagus: Continue with her PPI. 4 gastric bypass: She has chronic nutritional deficiencies related to this continue with multivitamin and B12 supplementation as well as replete her potassium and monitor hospitalized. DVT PROPHYLAXIS: Lovenox DISPOSITION: Observation admission. With telemetry monitoring This note was generated in part or whole with a voice recognition software. Voice recognition is usually quite accurate but there are designated broker errors that can very often do occur. I apologize for any typographical errors that were not detected and corrected. Vital Signs Vital Signs Date Time Temp Pulse Resp B/P (MAP) Pulse Ox O2 Delivery O2 Flow Rate FiO2 02/02/19 10:02 18 02/02/19 08:10 90 146/69 (94) 100 Room Air 02/02/19 04:14 97.1 Laboratory Data Labs 24H Laboratory Tests 2 02/02/19 04:23: Immature Granulocyte % (Auto) 0.1, Neutrophils (%) (Auto) 44.7, Lymphocytes (%) (Auto) 42.6, Monocytes (%) (Auto) 7.1H, Eosinophils (%) (Auto) 4.9H, Basophils (%) (Auto) 0.6, Neutrophils # (Auto) 4.2, Lymphocytes # (Auto) 4.0, Monocytes # (Auto) 0.7, Eosinophils # (Auto) 0.5, Basophils # (Auto) 0.1, Nucleated Red Blood Cells % (auto) 0.0, Urine Color YELLOW, Urine Appearance CLOUDYH, Urine pH 6.0, Urine Specific [place] 1.015, Urine Protein 1+H, Urine Glucose (UA) NEGATIVE, Urine Ketones NEGATIVE, Urine Blood 3+H, Urine Nitrite NEGATIVE, Urine Bilirubin NEGATIVE, Urine Urobilinogen 0.2, Urine Leukocyte Esterase TRACEH, Urine WBC (Auto) 20H, Urine RBC (Auto) TNTCH, Urine Hyaline Casts (Auto) 0, Urine Bacteria (Auto) 1+H, Urine Squamous Epithelial Cells 1, Urine Mucus (Auto) SMALL, Urine Sperm (Auto) , Anion Gap 9, Glomerular Filtration Rate > 60.0, Calcium Level 9.0, Magnesium Level 2.3, Total Bilirubin 0.4, Direct Bilirubin < 0.1, Aspartate Amino Transf (AST/SGOT) 17, Alanine Aminotransferase (ALT/SGPT) 32, Alkaline Phosphatase 110, Total Protein 7.2, Albumin 4.0, Albumin/Globulin Ratio 1.25, Lipase 117 CBC/BMP Laboratory Tests 02/02/19 04:23 Microbiology Microbiology 02/02/19 Urine Culture, Received Pending Home Medications Scheduled Cyanocobalamin (Vitamin B-12) (Vitamin B-12) 1,000 Mcg Tab, 1,000 MCG PO DAILY Multivitamins (Thera M Plus Tablet) 1 Tab Tab, 1 TAB PO DAILY Omeprazole (Omeprazole) 20 Mg Capsule.dr, 20 MG PO DAILY Potassium Gluconate (Potassium) 99 Mg Tablet, 595 MG PO 3XW Allergies Coded Allergies: clarithromycin (Verified Adverse Reaction, Intermediate, N/V, 02/02/19) A-FIB/CHADSVASC A-FIB History Current/History of A-Fib/PAF?: No EDITH BARRY MD Feb 02, 2019 10:17
--- NOTE | 2019-02-02 11:28 | SMCUROLCON ---
Urology Consultation General Date of Consultation 02/02/19 Reason For Consultation This patient is seen for L distal ureteral stone, requested by Dr. 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 She awoke at 3 am with severe colicky L sided pain radiating from the L flank to the LLQ, associated with N/V/ No temps. CT (reviewed) shows a 3x4 mm L distal stone with mild-moderate L hydronephrosis. S he has a fam h/o stones in a sister. H/O hypokalemia issues since bypass, from which she has lost >100lbs. No chills. Pain now controlled after toredol and tamsulosin, though she is still sl nauseated. Past Medical History Medical History Hypokalemia; Morbid Obesity Surgical Hstory LAVH; Lap GI bypass; [place] teeth; nasal septum; BTL Family History Significant Family History: Other (s) Family History Stones Social History * Smoker: non-smoker Alcohol: Denies Drugs: denies Medications Current Medications Current Medications Medications (Trade) Dose Ordered Sig/Sienna Route PRN Reason Start Time Stop Time Status Last Admin Dose Admin Acetaminophen (Tylenol Tab) 650 mg Q6HP PRN PO PAIN 02/02/19 09:00 02/08/19 23:00 Calcium Carbonate (Tums) 500 mg DAILY PRN PO INDIGESTION 02/02/19 10:00 Cyanocobalamin (Vitamin B12) 1,000 mcg DAILY PO 02/03/19 09:00 Enoxaparin Sodium (Lovenox) 40 mg QHS SC 02/02/19 21:00 Home Med (Med Rec Complete!) ASDIRECTED XX 02/02/19 08:15 02/02/19 08:19 DC Ketorolac Tromethamine (ToRADol) 15 mg Q6H PRN IV PAIN 02/02/19 10:00 02/07/19 09:59 Morphine Sulfate (Morphine Sulfate Inj) 2 mg Q4HP PRN IV PAIN 02/02/19 10:00 Morphine Sulfate (Morphine Sulfate Inj) 4 mg Q30M PRN IV SEVERE PAIN (PS 8-10) 02/02/19 06:30 02/02/19 18:00 02/02/19 09:24 Multivitamins (Theragram-M) 1 tab DAILY PO 02/03/19 09:00 Omeprazole (PriLOSEC) 20 mg DAILY PO 02/03/19 09:00 Ondansetron HCl (ZOFRAN INJection) 4 mg Q4HP PRN IV NAUSEA OR VOMITING 02/02/19 09:00 02/02/19 08:55 Oxycodone/ Acetaminophen (Percocet 5mg/ 325mg Tablet) 1 tab Q4HP PRN PO MILD/MODERATE PAIN (PS 1-7) 02/02/19 10:00 Oxycodone/ Acetaminophen (Percocet 5mg/ 325mg Tablet) 2 tab Q4HP PRN PO SEVERE PAIN (PS 8-10) 02/02/19 10:00 Potassium Chloride/Dextrose/ Sod Cl 1,000 ml @ 75 mls/hr [id number] IV 02/02/19 10:15 UNV Sodium Chloride 1,000 ml @ 75 mls/hr [id number] IV 02/02/19 10:00 02/02/19 10:04 DC Tamsulosin HCl (Flomax) 0.4 mg DAILY PO 02/03/19 09:00 Allergies Allergies: Coded Allergies: clarithromycin (Verified Adverse Reaction, Intermediate, N/V, 02/02/19) Review of Systems General: Reports: Chills, Normal Appetite (denies); Denies: ROS Unobtainable, Night Sweats, Fatigue, Malaise, Other Symptoms Constitutional: Denies: Fever, Chills, Sweats, Weakness, Malaise, Other Eyes: Denies: Pain, Vision change, Conjunctivae inflammation, Eyelid inf lammation, Redness, Other ENT: Denies: Head Aches, Ear Pain, Dysphagia, Sinus Congestion, Post Nasal Drip, Sore Throat, Epistaxis, Other Symptoms Skin: Denies: Rash, Lesions, Jaundice, Bruising, Itching, Dry, Breakdown, Nail Changes, Other Pulmonary: Denies: Dyspnea, Cough, Pleuritic Chest Pain, Other Symptoms Cardiovascular: Denies Chest Pain, Denies Palpitations, Denies Orthopnea, Denies Paroxysmal Noc. Dyspnea, Denies Edema, Denies Lt Headedness, Denies Other Symptoms Gastrointestinal: Reports: Nausea, Vomiting, Abdominal Pain, Other Symptoms (GE reflux) Genitourinary: Denies: Dysuria, Frequency, Incontinence, Hematuria, Retention, Other Symptoms Hematologic: Denies: Bruising, Bleeding Excessively, Petecchia, Purpura, Enlarged Lymph Nodes, Other Hematologic Endocrine: Denies: Polydipsia, Polyphagia, Polyuria, Heat Intolerance, Cold Intolerance, Other Endocrine Sx Musculoskeletal: Denies: Neck Pain, Back Pain, Shoulder Pain, Arm Pain, Hand Pain, Leg Pain, Foot Pain, Joint Pain, Muscle Pain, Spasms, Other Symptoms Neurological: Denies: Weakness, Numbness, Incoordination, Change in Speech, Confusion, Seizures, Other Symptoms Psych: Denies: Mood Normal, Anxiety, Depression, Memory Issues, Thoughts of Self Harm, Anger, Thoughts of harming Other, Other Psych Physical Examination General Exam: Alert, Cooperative, Mild Distress EYE EXAM: PERRLA, EOMI ENT EXAM: Atraumatic Neck Exam: Supple Chest Exam: Clear to auscultation, Normal air movement Heart Exam: Regular Rhythm Abdomen Exam: Normal Bowel Sounds, Other (Tender L flank and LLQ without peritoneal signs) Female Exam: Nl Ext Genitalia Extremity Exam: Normal Pulses Skin Exam: Nl turgor and temperature Neuro Exam: Normal Speech, Strength at 5/5 X4 ext, Normal Tone, Sensation Intact, Cranial Nerves 3-12 NL Psych Exam: Mood NL, Oriented x 3 Vital Signs/I&O Vital Signs Date Time Temp Pulse Resp B/P (MAP) Pulse Ox O2 Delivery O2 Flow Rate FiO2 02/02/19 10:02 18 02/02/19 08:10 90 146/69 (94) 100 Room Air 02/02/19 04:14 97.1 I&O- Last 24 Hours up to 6 AM 02/02/19 06:00 Intake Total 1000 ml Balance 1000 ml Laboratory Data 24H Labs Laboratory Tests 2 02/02/19 04:23: Immature Granulocyte % (Auto) 0.1, Neutrophils (%) (Auto) 44.7, Lymphocytes (%) (Auto) 42.6, Monocytes (%) (Auto) 7.1H, Eosinophils (%) (Auto) 4.9H, Basophils (%) (Auto) 0.6, Neutrophils # (Auto) 4.2, Lymphocytes # (Auto) 4.0, Monocytes # (Auto) 0.7, Eosinophils # (Auto) 0.5, Basophils # (Auto) 0.1, Nucleated Red Blood Cells % (auto) 0.0, Urine Color YELLOW, Urine Appearance CLOUDYH, Urine pH 6.0, Urine Specific [place] 1.015, Urine Protein 1+H, Urine Glucose (UA) NEGATIVE, Urine Ketones NEGATIVE, Urine Blood 3+H, Urine Nitrite NEGATIVE, Urine Bilirubin NEGATIVE, Urine Urobilinogen 0.2, Urine Leukocyte Esterase TRACEH, Urine WBC (Auto) 20H, Urine RBC (Auto) TNTCH, Urine Hyaline Casts (Auto) 0, Urine Bacteria (Auto) 1+H, Urine Squamous Epithelial Cells 1, Urine Mucus (Auto) SMALL, Urine Sperm (Auto) , Anion Gap 9, Glomerular Filtration Rate > 60.0, Calcium Level 9.0, Magnesium Level 2.3, Total Bilirubin 0.4, Direct Bilirubin < 0.1, Aspartate Amino Transf (AST/SGOT) 17, Alanine Aminotransferase (ALT/SGPT) 32, Alkaline Phosphatase 110, Total Protein 7.2, Albumin 4.0, Albumin/Globulin Ratio 1.25, Lipase 117 CBC/BMP Laboratory Tests 02/02/19 04:23 Microbiology Microbiology 02/02/19 Urine Culture, Received Pending Assessment A: Small L distal stone with metabolic derangement. P: Pt admitted for correction of K+ issues and observation. Medical expulsive therapy trial with tamsulosin and pain control is advised initially with endoscopic intervention if fever or intractable sx develop. Check C&S. Thank you for this consult. Will follow with you. Time Spent on Consult: Time Spent / Consult (Minutes): 40 GAUTAM PALENCIA MD Feb 02, 2019 11:24
[2019-02-02] MEDS: KCL 20MEQ IN D5/NS 1000ML 1,000 ML IV SCH (12:53)
[2019-02-02 14:20] VITALS: BP 136/79
[2019-02-02] MEDS: ACETAMINOPHEN TAB 650MG DOSE (2X325MG) PO PRN ×2 (14:55→21:11)
[2019-02-02] MEDS: KETOROLAC 30 MG/ML VIAL (J1885) IV PRN (14:56)
[2019-02-02 15:37] LABS: CREATININE,RANDOM URINE 68.3 MG/DL; POTASSIUM RANDOM URINE 60.9 MEQ/L
[2019-02-02 16:00] VITALS: BP 127/58
[2019-02-02 18:14] LABS: BLOOD UREA NITROGEN 9 MG/DL (7-18); CALCIUM LEVEL 8.2 MG/DL (8.5-10.1); CARBON DIOXIDE LEVEL 28 MEQ/L (21-32); CHLORIDE LEVEL 107 MEQ/L (98-107); CREATININE FOR GFR 0.81 MG/DL (0.55-1.30); GLOMERULAR FILTRATION RATE > 60.0 (>51); GLUCOSE, FASTING 161 MG/DL (70-100); POTASSIUM SERUM 3.9 MEQ/L (3.5-5.1); SODIUM LEVEL 141 MEQ/L (136-145)
[2019-02-02] MEDS ORDERED: cefTRIAXone SOD 1 GM in D5W MINI-BAG PLUS 50 ML IV ONE (19:00)
[2019-02-02 20:00] VITALS: BP 100/54
[2019-02-02] MEDS: ENOXAPARIN 40 MG/0.4 ML SYRINGE (J1650) SC SCH (21:00)
[2019-02-03] VITALS: BP 100/58
[2019-02-03] MEDS: KCL 20MEQ IN D5/NS 1000ML 1,000 ML IV SCH ×2 (02:30→13:20)
[2019-02-03 04:00] VITALS: BP 115/68
[2019-02-03] MEDS ORDERED: ACETAMINOPHEN TAB 650MG DOSE (2X325MG) PO ONE (04:45)
[2019-02-03] MEDS: ACETAMINOPHEN TAB 650MG DOSE (2X325MG) PO PRN ×2 (04:48→18:33)
[2019-02-03 05:52] LABS: HEMATOCRIT 34.4 % (36.0-47.0); MEAN CORPUSCULAR HEMOGLOBIN 28.9 pg (27.0-33.0); MEAN CORPUSCULAR HGB CONC 32.6 g/dl (32.0-36.5); MEAN CORPUSCULAR VOLUME 88.7 fl (80.0-96.0); PLATELET COUNT, AUTOMATED 133 10^3/uL (150-450); RED BLOOD COUNT 3.88 10^6/uL (4.00-5.40)
[2019-02-03 05:53] LABS: HEMOGLOBIN 11.2 g/dl (12.0-15.5)
[2019-02-03 06:15] LABS: BLOOD UREA NITROGEN 10 MG/DL (7-18); CALCIUM LEVEL 8.3 MG/DL (8.5-10.1); CARBON DIOXIDE LEVEL 28 MEQ/L (21-32); CHLORIDE LEVEL 111 MEQ/L (98-107); CREATININE FOR GFR 0.71 MG/DL (0.55-1.30); GLOMERULAR FILTRATION RATE > 60.0 (>51); GLUCOSE, FASTING 135 MG/DL (70-100); POTASSIUM SERUM 3.7 MEQ/L (3.5-5.1); SODIUM LEVEL 143 MEQ/L (136-145)
[2019-02-03 08:00] VITALS: BP 119/60
[2019-02-03] MEDS: CYANOCOBALAMIN 500 MCG TAB PO SCH (08:25)
[2019-02-03] MEDS: TAMSULOSIN 0.4 MG CAP PO SCH (08:25)
[2019-02-03] MEDS: MULTIVITAMINS/MINERALS THERAP 1 TAB PO SCH (08:25)
[2019-02-03] MEDS: OMEPRAZOLE 20 MG CAP PO SCH (08:25)
[2019-02-03 12:00] VITALS: BP 121/70
[2019-02-03] MEDS ORDERED: cefTRIAXone SOD 1 GM in D5W MINI-BAG PLUS 50 ML IV ONE (13:00)
--- NOTE | 2019-02-03 13:05 | IPNPDOC ---
Subjective Review oF Systems Chief Complaint The patient is a 48-year-old female admitted with a reason for visit of Ureterolithiasis. Events since Last Encounter Patient reports only mild pain overnight. Some frequency. No vomiting. No rigors. No stone seen to pass. General: Denies: ROS Unobtainable, Chills, Night Sweats, Fatigue, Malaise, Normal Appetite, Other Symptoms Constitutional: Denies: Fever, Chills, Sweats, Weakness, Malaise, Other Genitourinary: Reports: Frequency Psych: Reports: Mood Normal Objective Physical Examination General Exam: Alert, Cooperative, No Acute Distress Eye Exam: HETAL PURVIS ENT EXAM: Atraumatic Chest Exam: Normal air movement Heart Exam: Positive: Rate Normal Vital Signs/I&O Vital Signs Date Time Temp Pulse Resp B/P (MAP) Pulse Ox O2 Delivery O2 Flow Rate FiO2 02/03/19 12:00 98.9 75 16 121/70 (87) 98 Room Air I&O- Last 24 Hours up to 6 AM 02/03/19 06:00 Intake Total 1820 ml Output Total 1100 ml Balance 720 ml Laboratory Data Labs 24H Laboratory Tests 2 02/02/19 15:05: Urine Random Creatinine 68.3, Urine Random Potassium 60.9 02/02/19 17:11: Anion Gap 6L, Glomerular Filtration Rate > 60.0, Calcium Level 8.2L 02/03/19 05:32: Anion Gap 4L, Glomerular Filtration Rate > 60.0, Calcium Level 8.3L, Nucleated Red Blood Cells % (auto) 0.0 CBC/BMP Laboratory Tests 02/02/19 17:11 02/03/19 05:32 Microbiology Microbiology 02/02/19 Urine Culture, Received Pending Assessment/Plan Date Seen The patient was seen on 02/03/19. Patient Summary Impression: Small left distal ureteral stone. Hypokalemia, now corrected. Plan/VTE VTE Prophylaxis Ordered?: Yes Plan Plan: From a urologic standpoint, the patient can be dismissed on oral analgesics. If she remains afebrile tonight and culture negative. Continue trial of passage is appropriate GAUTAM PALENCIA MD Feb 03, 2019 13:05
--- NOTE | 2019-02-03 14:27 | IPNPDOC ---
Date Seen The patient was seen on 02/03/19. Progress Note SUBJECTIVE: Patient is a 48-year-old female with left-sided obstructing nephrolithiasis with hydroureteronephrosis and hypokalemia, which has resolved. Patient states she feels well today. She states she still has some mild flank pain which has been well-controlled with pain medication. She denies any nausea, vomiting, or other abdominal pain. Denies any dysuria, urinary frequency, urinary urgency. OBJECTIVE PHYSICAL EXAMINATION: VITAL SIGNS: Please see below. GENERAL: Alert, sitting up in bed comfortably, speaking in complete sentences, no acute distress HEENT:. Moist mucous membranes CARDIOVASCULAR: Regular rate and rhythm, normal S1, S2, no murmurs, rubs or gallops appreciated RESPIRATORY: Clear to auscultation bilaterally ABDOMINAL:, Soft, nontender, nondistended, bowel sounds present, nontender to palpation, no CVA tenderness present EXTREMITIES: No edema, 2+ pulses in bilateral upper and lower extremities. NEUROLOGICAL: Alert and oriented 3 to person, place and time, cranial nerves 212 grossly intact, no focal deficits appreciated. PSYCHOLOGICAL: Appropriate mood and affect LABORATORY DATA, IMAGING STUDIES, MICROBIOLOGY: Please see below. ASSESSMENT AND PLAN: This is a 48-year-old female with left-sided obstructing nephrolithiasis with hydroureteronephrosis and hypokalemia, which has resolved. PROBLEMS: 1. Left-sided obstructing hydroureteronephrosis secondary to nephrolithiasis: Relatively small stone which would likely spontaneously pass, we'll provide her with NSAID ketorolac as well as Flomax in order to help her process. She has not needed any stronger pain medications for breakthrough pain at this point. Urology consult, appreciate their input and recommendations. No interventions indicated at this time. Advance diet to regular diet today as she is no longer experiencing any nausea or vomiting. 2. hypokalemia: Chronic and likely related to her history of gastric bypass, patient is normally supposed to be on supplementation she admits to being noncompliant with this. Continue with IV potassium supplementation as she is receiving IV fluids. When discharged. She'll resume her oral potassium supplementation. Resolved at this point, continue to monitor electrolytes daily. 3. History of Chavis's Esophagus: Continue with her PPI. 4. History of gastric bypass: She has chronic nutritional deficiencies related to this. continue with multivitamin and B12 supplementation as well as replete her potassium and monitor while hospitalized. 5. DVT prophylaxis: Lovenox DIS[facility]ITION: [facility], likely discharge tomorrow VS, I&O, 24H, Fishbone Vital Signs/I&O Vital Signs Date Time Temp Pulse Resp B/P (MAP) Pulse Ox O2 Delivery O2 Flow Rate FiO2 02/03/19 12:00 98.9 75 16 121/70 (87) 98 Room Air I&O- Last 24 Hours up to 6 AM 02/03/19 05:59 Intake Total 1820 ml Output Total 1100 ml Balance 720 ml Laboratory Data 24H LABS Laboratory Tests 2 02/02/19 15:05: Urine Random Creatinine 68.3, Urine Random Potassium 60.9 02/02/19 17:11: Anion Gap 6L, Glomerular Filtration Rate > 60.0, Calcium Level 8.2L 02/03/19 05:32: Anion Gap 4L, Glomerular Filtration Rate > 60.0, Calcium Level 8.3L, Nucleated Red Blood Cells % (auto) 0.0 CBC/BMP Laboratory Tests 02/02/19 17:11 02/03/19 05:32 Microbiology Microbiology 02/02/19 Urine Culture, Received Pending TIARRA CHANDRA PGY-1 Feb 03, 2019 14:27
[2019-02-03 16:00] VITALS: BP 123/74
[2019-02-03] MEDS: ONDANSETRON 4MG/2ML VIAL (J2405) IV PRN (18:33)
[2019-02-03] MEDS: KETOROLAC 30 MG/ML VIAL (J1885) IV PRN (19:55)
[2019-02-03 20:00] VITALS: BP 146/93
[2019-02-03] MEDS: ENOXAPARIN 40 MG/0.4 ML SYRINGE (J1650) SC SCH (21:00)
[2019-02-04] VITALS: BP 127/83
[2019-02-04] MEDS: ACETAMINOPHEN TAB 650MG DOSE (2X325MG) PO PRN (00:04)
[2019-02-04 03:30] VITALS: BP 115/68
[2019-02-04] MEDS: KCL 20MEQ IN D5/NS 1000ML 1,000 ML IV SCH (04:01)
[2019-02-04] MEDS: KETOROLAC 30 MG/ML VIAL (J1885) IV PRN (04:10)
[2019-02-04 08:00] VITALS: BP 121/74
[2019-02-04] MEDS: OMEPRAZOLE 20 MG CAP PO SCH (08:22)
[2019-02-04] MEDS: TAMSULOSIN 0.4 MG CAP PO SCH (08:22)
[2019-02-04] MEDS: MULTIVITAMINS/MINERALS THERAP 1 TAB PO SCH (08:22)
[2019-02-04] MEDS: CYANOCOBALAMIN 500 MCG TAB PO SCH (08:22)
[2019-02-04 08:24] LABS: HEMOGLOBIN 11.3 g/dl (12.0-15.5); MEAN CORPUSCULAR HGB CONC 32.3 g/dl (32.0-36.5); PLATELET COUNT, AUTOMATED 124 10^3/uL (150-450); RED BLOOD COUNT 3.89 10^6/uL (4.00-5.40); WHITE BLOOD COUNT 6.4 10^3/uL (4.0-10.0)
[2019-02-04 08:43] LABS: BLOOD UREA NITROGEN 8 MG/DL (7-18); CALCIUM LEVEL 8.3 MG/DL (8.5-10.1); CARBON DIOXIDE LEVEL 31 MEQ/L (21-32); CHLORIDE LEVEL 111 MEQ/L (98-107); CREATININE FOR GFR 0.62 MG/DL (0.55-1.30); GLOMERULAR FILTRATION RATE > 60.0 (>51); GLUCOSE, FASTING 99 MG/DL (70-100); SODIUM LEVEL 144 MEQ/L (136-145)
[2019-02-04] MEDS ORDERED: CEFD300CAP PO (09:40)
[2019-02-04] MEDS ORDERED: FLOM0.4C39 PO (09:40)
[2019-02-04] MEDS ORDERED: KETO10TAB PO (09:40)
[2019-02-04] MEDS ORDERED: CEFDINIR 300 MG CAP (OMNICEF) PO SCH (10:00)
[2019-02-04] MEDS ORDERED: LevoFLOXacin 750 MG TABLET PO SCH (11:00)
--- NOTE | 2019-02-04 13:41 | DS.PDOC ---
Discharge Summary General Date of Admission Feb 02, 2019 at 04:14 Date of Discharge 02/04/2019 Primary Care Physician: Haily Epstein Discharge Summary PROCEDURES PERFORMED DURING STAY: None ADMITTING DIAGNOSES: 1. Left-sided obstructing [place] ureter nephrosis secondary to nephrolithiasis. 2. Hypokalemia. DISCHARGE DIAGNOSES: 1. Left-sided obstructing [place] ureter nephrosis secondary to nephrolithiasis. 2. Hypokalemia. COMPLICATIONS/CHIEF COMPLAINT: Ureterolithiasis. HISTORY OF PRESENT ILLNESS: 48-year-old female with a past medical history of gastric bypass surgery who presented with 2 days of progressively worsening left inguinal pain which radiated to her left leg. She also complained of associated nausea but denies any vomiting. She denies any fevers, chills, changes in diet. She states she has noticed some dark urine but denied any additional urinary complaints. Patient also notes that she is told to take a potassium supplement due to her gastric bypass surgery, however, she does not take it frequently and typically only takes it when she feels symptomatic from her potassium being low. On admission, she stated she had taken in a few weeks, but didn't take it the day prior. HOSPITAL COURSE: Patient was admitted to the hospital with a small left-sided obstructing nephrolithiasis and concurrent hydroureter nephrosis and urinary tract infection with fever. She was started on ceftriaxone for the urinary tract infection. She also received ketorolac for pain control along with IV fluids and Flomax to help her pass the stone more easily. She did not require any higher level pain medications. Urology was consulted and agreed she would likely pass the stone spontaneously and no further intervention was indicated. The patient was also found to be hypokalemic on admission and was given potassium supplement through her IV fluids. The patient's hypokalemia resolved during her admission and remained stable. On discharge, she agreed to take her potassium supplement regularly as prescribed. On the day of discharge, the patient was found to be stable and safe for discharge. DISCHARGE MEDICATIONS: Please see below. ALLERGIES: Please see below. PHYSICAL EXAMINATION ON DISCHARGE: VITAL SIGNS: Please see below. GENERAL: Alert, sitting up in bed comfortably, speaking in complete sentences, no acute distress HEENT: Atraumatic, normocephalic, PERRLA, EOMI, Moist mucous membranes NECK: Supple, no lymphadenopathy CARDIOVASCULAR EXAMINATION: Regular rate and rhythm, normal S1, S2, no murmurs, rubs or gallops appreciated RESPIRATORY EXAMINATION: Clear to auscultation bilaterally ABDOMINAL EXAMINATION: Soft, nontender, nondistended, bowel sounds present, nontender to palpation, no CVA tenderness present EXTREMITIES: No edema, 2+ pulses in bilateral upper and lower extremities. SKIN: warm, pink, dry NEUROLOGICAL EXAMINATION: Alert and oriented 3 to person, place and time, cranial nerves 212 grossly intact, no focal deficits appreciated. PSYCHIATRIC EXAMINATION: Appropriate mood and affect LABORATORY DATA: Please see below. IMAGING: CT abdomen/pelvis 02/02/19: IMPRESSION: 1. Mild left-sided hydroureteronephrosis secondary to a 3 x 3 x 4 mm distal left ureteral stone, just proximal to the ureterovesical junction. 2. Additional punctate nonobstructing left renal stone. 3. Mild scattered colonic diverticulosis without evidence for diverticulitis. PROGNOSIS: Good ACTIVITY: As tolerated. DIET: As tolerated. DISCHARGE PLAN: Home DISPOSITION: Home. DISCHARGE INSTRUCTIONS: 1. Follow up with your PCP in 7-10 days 2. Complete full course of antibiotics to treat the urinary tract infection. 3. The stone should pass on its own. You may continue to take Flomax daily until the stone passes. 4. If your symptoms return or if your condition worsens, please call your PCP or return to the ED for further evaluation. ITEMS TO FOLLOWUP ON ON OUTPATIENT: 1. Left-sided obstructing nephrolithiasis. 2. UTI 3. Hypokalemia DISCHARGE CONDITION: Stable. TIME SPENT ON DISCHARGE: Greater than 35 minutes. Vital Signs/I&Os Vital Signs Date Time Temp Pulse Resp B/P (MAP) Pulse Ox O2 Delivery O2 Flow Rate FiO2 02/04/19 08:00 98.6 79 18 121/74 (90) 97 Room Air I&O- Last 24 Hours up to 6 AM 02/04/19 05:59 Intake Total 1400 ml Output Total 2250 ml Balance -850 ml Laboratory Data Labs 24H Laboratory Tests 2 02/04/19 07:48: Nucleated Red Blood Cells % (auto) 0.0, Anion Gap 2L, Glomerular Filtration Rate > 60.0, Calcium Level 8.3L CBC/BMP Laboratory Tests 02/04/19 07:48 Microbiology Microbiology 02/02/19 Urine Culture - Final, Complete Enterobacter Cloacae Complex Discharge Medications Scheduled Cefdinir (Cefdinir) 300 Mg Capsule, 300 MG PO BID Cyanocobalamin (Vitamin B-12) (Vitamin B-12) 1,000 Mcg Tab, 1,000 MCG PO DAILY, (Reported) Ketorolac Tromethamine (Ketorolac Tromethamine) 10 Mg Tablet, 10 MG PO BID for pain Multivitamins (Thera M Plus Tablet) 1 Tab Tab, 1 TAB PO DAILY, (Reported) Omeprazole (Omeprazole) 20 Mg Capsule.dr, 20 MG PO DAILY, (Reported) Potassium Gluconate (Potassium) 99 Mg Tablet, 595 MG PO 3XW, (Reported) Tamsulosin HCl (Flomax) 0.4 Mg Capsule, 0.4 MG PO DAILY Allergies Coded Allergies: clarithromycin (Verified Adverse Reaction, Intermediate, N/V, 02/02/19) GME ATTESTATION GME ATTESTATION My faculty preceptor for this patient encounter was physically present during the encounter and was fully available. All aspects of the patient interview, examination, medical decision making process, and medical care plan development were reviewed and approved by the faculty preceptor. The faculty preceptor is aware and concurs with the plan as stated in the body of this note and will attest to such by his/her cosignature. ATTENDING NOTE I, Carlos Willson, have independently examined this patient and performed my own physical exam, as well as reviewed the documentation and edited where necessary. I have discussed in detail with the resident / student the findings and plan of treatment as documented by the resident / student and edited their note. I agree with their findings and treatment plan and have edited their documentation. I will continue to follow the patient during this hospital stay. Time on discharge 35 minutes TIARRA CHANDRA PGY-1 Feb 04, 2019 13:41 CALROS WILLSON MD Feb 04, 2019 14:59
== END 2019-02-04 11:55 | disposition home or self-care (01) ==
LOC: M ED 04:13 → M ED INP 04:14 → M PCU 14:15 → M PED 02-04 03:18
PROVIDERS: ADMIT Internal Medicine; ATTEND Internal Medicine
DX: N13.2 Hydronephrosis with renal and ureteral calculous obstruction (principal); N39.0 Urinary tract infection, site not specified; E87.6 Hypokalemia; R50.9 Fever, unspecified; F41.9 Anxiety disorder, unspecified; Z98.84 Bariatric surgery status; Z79.899 Other long term (current) drug therapy; Z88.1 Allergy status to other antibiotic agents
CPT/HCPCS: 36415; 74176; 80048; 80076; 81001; 82570; 83690; 83735; 84133; 85025; 85027; 87088; 87186; 93005; 96361; 96374; 96375; 96376; 99285; J0696; J1885; J2270; J2405

== ENCOUNTER → 2019-02-05 | Outpatient (REF) | payer OTHER ==
[~2019-02-05] MED LIST changes: +CEFD300CAP PO; +FLOM0.4C39 PO; +HM P99TA PO; +KETO10TAB PO; +OMEP-218 PO; +VITA500045
== END ==
LOC: M SMT 15:13
PROVIDERS: ATTEND Nurse Practitioner Women's Health
DX: N13.2 Hydronephrosis with renal and ureteral calculous obstruction (principal)

== ENCOUNTER → 2019-02-26 | Outpatient (REF) | payer OTHER ==
[2019-02-26 15:05] LABS: APPEARANCE, URINE CLEAR (CLEAR); BACTERIA, URINE AUTO 1+ (NEGATIVE); BILIRUBIN, URINE AUTO NEGATIVE (NEGATIVE); BLOOD, URINE BLOOD NEGATIVE (NEGATIVE); COLOR, URINE YELLOW (YELLOW); GLUCOSE, URINE (UA) AUTO NEGATIVE (NEGATIVE); KETONE, URINE AUTO NEGATIVE (NEGATIVE); LEUKOCYTE ESTERASE, URINE AUTO NEGATIVE (NEGATIVE); MUCUS, URINE SMALL (NEGATIVE); NITRITE, URINE AUTO NEGATIVE (NEGATIVE); PROTEIN, URINE AUTO NEGATIVE (NEGATIVE); RBC, URINE AUTO 1 /HPF (0-3); SPECIFIC GRAVITY URINE AUTO 1.014 (1.002-1.035); SQUAMOUS EPITHELIAL CELL UR AU 0 /HPF (0-6); UROBILINOGEN, URINE AUTO 0.2 mg/dL (0.0-2.0); WBC, URINE AUTO 3 /HPF (0-3)
== END ==
LOC: M SMT 13:51
PROVIDERS: ATTEND Nurse Practitioner Women's Health
DX: N39.0 Urinary tract infection, site not specified (principal)

== ENCOUNTER 2019-03-31 09:03 | Emergency (ER) | payer OTHER ==
[~2019-03-31] VITALS: Ht 165.1 cm; Wt 73.9 kg
[~2019-03-31 09:03] MED LIST changes: +OMEP-172 PO; -OMEP20CA4 PO; -SIMV20TA2 PO; +SIMV20TA22 PO
[2019-03-31] MEDS ORDERED: KETOROLAC TROMETHAMINE 10 MG TAB PO ONE (10:00)
--- NOTE | 2019-03-31 10:41 | REP ---
LEFT WRIST, FOUR VIEWS: Four views of the left wrist were performed. There is a comminuted intraarticular fracture of the distal radius with dorsal displacement and angulation. There is a nondisplaced fracture of the adjacent end of ulna. Other visualized osseous structures appear intact. Electronically Signed by Khadar Lara MD 03/31/2019 04:21 P
[2019-03-31 11:07] VITALS: BP 142/93
== END 2019-03-31 11:16 | disposition home or self-care (01) ==
LOC: M ED 09:03
DX: S52.572A Other intraarticular fracture of lower end of left radius, initial encounter for closed fracture (principal); S52.692A Other fracture of lower end of left ulna, initial encounter for closed fracture; W00.0XXA Fall on same level due to ice and snow, initial encounter; Y92.481 Parking lot as the place of occurrence of the external cause; I10 Essential (primary) hypertension; E11.9 Type 2 diabetes mellitus without complications; E78.5 Hyperlipidemia, unspecified; F41.9 Anxiety disorder, unspecified; Z98.84 Bariatric surgery status; Z79.899 Other long term (current) drug therapy; Z88.1 Allergy status to other antibiotic agents

== ENCOUNTER → 2019-04-01 | Outpatient (CLI) | payer OTHER ==
--- NOTE | 2019-04-01 11:56 | REP ---
CT LEFT WRIST: CT left wrist performed. There is a comminuted intra-articular fracture of the distal radius. Fracture fragments are mildly displaced posterolaterally. There is good alignment with the adjacent carpal bones. Nondisplaced fracture of the distal ulna is noted. Carpal bones are intact. Overlying cast is noted. Electronically Signed by Khadar Lara MD 04/01/2019 04:21 P
== END ==
LOC: M RAD 11:04
PROVIDERS: ATTEND Orthopaedic Surgery
DX: S52.572A Other intraarticular fracture of lower end of left radius, initial encounter for closed fracture (principal); X58.XXXA Exposure to other specified factors, initial encounter; Y92.89 Other specified places as the place of occurrence of the external cause

== ENCOUNTER 2019-04-14 10:15 | Day surgery (SDC) | payer OTHER ==
[~2019-04-14] VITALS: Ht 165.1 cm; Wt 69.4 kg
[~2019-04-14 10:15] MED LIST changes: +IBUP200C25 PO; +LIDOCAINE 1% MDV 20ML VIAL SQ PRN; +LR 1,000 ML IV ONE; +TRAM50TA2 PO; +ceFAZolin SOD 2 GM in IV 1 EA IV ONE
[2019-04-14] MEDS ORDERED: BUPIVACAINE/EPIN 0.25% 30 ML VIAL As Ordered ONE (13:30)
[2019-04-14] MEDS ORDERED: ROCURONIUM BROMIDE 50 MG/5 ML VIAL As Ordered ONE (14:29)
[2019-04-14] MEDS ORDERED: fentaNYL 100 MCG/2 ML INJECTION (J3010) As Ordered ONE (14:29)
[2019-04-14] MEDS ORDERED: LIDOCAINE 2% INJ 100 MG/5 ML SDV (FOR ANES.) As Ordered ONE (14:29)
[2019-04-14] MEDS ORDERED: MIDAZOLAM INJ 2 MG/2 ML VIAL (J2250) As Ordered ONE (14:29)
[2019-04-14] MEDS ORDERED: dexameTHASONE 4 MG/ML 1ML VIAL (J1100) As Ordered ONE (14:30)
[2019-04-14] MEDS ORDERED: ONDANSETRON 4MG/2ML VIAL (J2405) As Ordered ONE (14:30)
[2019-04-14] MEDS ORDERED: HYDROmorphone HCL 2 MG/ML 1ML VIAL (J1170) As Ordered ONE (14:59)
[2019-04-14] MEDS ORDERED: ACETAMINOPHEN 1000MG 100ML IV BTL (OFIRMEV) (J0131 PER 10MG) As Ordered ONE (15:13)
[2019-04-14] MEDS ORDERED: SUGAMMADEX SODIUM 500 MG/5 ML VIAL (BRIDION) As Ordered ONE (15:14)
[2019-04-14] MEDS ORDERED: HYDROMORPHONE HCL 0.5 MG/ 0.5 ML SYRINGE (J1170 PER 1) IV PRN (16:15)
[2019-04-14] MEDS ORDERED: oxyCODONE 5MG TAB PO PRN ×2 (16:15)
[2019-04-14] MEDS ORDERED: fentaNYL 100 MCG/2 ML INJECTION (J3010) IV PRN (16:15)
[2019-04-14] MEDS ORDERED: LR 1,000 ML IV SCH (16:15)
[2019-04-14] MEDS ORDERED: ONDANSETRON 4MG/2ML VIAL (J2405) IV PRN (16:15)
[2019-04-14] MEDS: oxyCODONE 5MG TAB PO PRN ×2 (16:27→17:11)
--- NOTE | 2019-04-14 16:47 | REP ---
Clinical: Status post fixation. Technique: Intraoperative fluoroscopic imaging using portable C-arm technique. Findings: The patient is status post open reduction and fixation for or distal radial metaphyseal fracture. Satisfactory alignment/reduction and hardware placement noted. Total fluoroscopic time 57.2 seconds. Impression: Status post satisfactory open reduction and fixation. Electronically Signed by Valentin Metcalf MD 04/14/2019 04:38 P
[2019-04-14 19:00] VITALS: BP 133/77
--- NOTE | 2019-04-15 11:27 | RO ---
DATE OF PROCEDURE: 04/14/2019 PREOPERATIVE DIAGNOSIS: Left distal radius intra-articular comminuted fracture. POSTOPERATIVE DIAGNOSIS: Left distal radius intra-articular comminuted fracture. PROCEDURE: Open reduction, internal fixation of left distal radius intra-articular comminuted fracture. SURGEON: Daniel Mendes MD ACCESS DEVELOPER: None. ANESTHESIA: General. INDICATIONS: This is a 48-year-old female that failed nonoperative treatment after attempting a closed reduction casting of her left distal radius that was not within the acceptable means especially for such a young and active age. We discussed the risks and benefits of this, including but not limited to infection, malunion, nonunion, damage to surrounding structures. The patient expressed understanding and wished to proceed. PREOPERATIVE ANTIBIOTICS: 2 grams of Ancef. TOURNIQUET TIME: 45 minutes. BLOOD LOSS: Minimal. DESCRIPTION OF PROCEDURE: The patient was brought back to the operating room (OR) in the supine position and underwent general anesthesia, at which point the left arm was prepped and draped in the usual fashion. We then had time-out confirming the site, side and surgery. Once all in agreement, we elevated the tourniquet up to 50 mmHg. We then made a longitudinal incision over FCR, incising the sheath. Retracted the FCR and then we incised the deep portion of sheath encountering FPL retracting it ulnarly. I encountered pronator quadratus. We elevated the pronator quadratus exposing the fracture sites. We then detached brachioradialis from its attachment on the radial styloid. We then used a [place] elevator to help debride the fracture sites and curette nice along with reducing the fracture. Once we reduced the fracture, we pinned it in place with a 1.6 K-wire from the radial styloid to the radial shaft. Once we were happy with this reduction, we then used a 3-hole, 2.7 Synthes variable angle plate. We pinned the plate in place. Confirmed on AP and lateral for plate placement. We then inserted four distal locking screws along with three cortical screws to compress the plate to bone. We confirmed this in AP and lateral. We were very happy with reduction and fixation. We made sure to have adequate fixation in the radial styloid and lunate facet as these were separate components on AP and lateral films. At which point, we irrigated the wound thoroughly, closed with #3-0 Vicryl for the skin, #3-0 nylon and dressed incision with Adaptic gauze and sterile Webril. Placed a dorsal wrist splint. Let down the tourniquet. The patient was awakened and taken to postanesthesia care unit (PACU) in stable condition. POSTOPERATIVE PLAN: The patient will have pain control, range of motion of the fingers, at which point we will see the patient back in 2 weeks for a repeat clinical check. AMBER
== END 2019-04-14 19:08 | disposition home or self-care (01) ==
LOC: M SDC 10:15
PROVIDERS: ATTEND Orthopaedic Surgery Hand Surgery
DX: S52.572A Other intraarticular fracture of lower end of left radius, initial encounter for closed fracture (principal); X58.XXXA Exposure to other specified factors, initial encounter; Y92.89 Other specified places as the place of occurrence of the external cause; Y93.9 Activity, unspecified; Y99.9 Unspecified external cause status; K21.9 Gastro-esophageal reflux disease without esophagitis; Z88.1 Allergy status to other antibiotic agents; Z79.899 Other long term (current) drug therapy
CPT/HCPCS: 25608; 76000; C1713; C1776; J0131; J0690; J1100; J1170; J2250; J2405; J3010

== ENCOUNTER → 2019-10-28 | Outpatient (CLI) | payer OTHER ==
[~2019-10-28] MED LIST changes: -LIDOCAINE 1% MDV 20ML VIAL SQ PRN; -LR 1,000 ML IV ONE; -OMEP-172 PO; +OMEP1CAP73 PO; -ceFAZolin SOD 2 GM in IV 1 EA IV ONE
[2019-10-28 19:56] LABS: HEMATOCRIT 40.9 % (36.0-47.0); HEMOGLOBIN 13.1 g/dl (12.0-15.5); MEAN CORPUSCULAR HEMOGLOBIN 28.6 pg (27.0-33.0); MEAN CORPUSCULAR VOLUME 89.3 fl (80.0-96.0); PLATELET COUNT, AUTOMATED 173 10^3/uL (150-450); RED BLOOD COUNT 4.58 10^6/uL (4.00-5.40); WHITE BLOOD COUNT 5.5 10^3/uL (4.0-10.0)
[2019-10-28 20:24] LABS: HEMOGLOBIN A1c 5.6 %
[2019-10-28 20:47] LABS: ALBUMIN 3.9 GM/DL (3.2-5.2); ALT/SGPT 27 U/L (12-78); BILIRUBIN,TOTAL 0.9 MG/DL (0.2-1.0); BLOOD UREA NITROGEN 12 MG/DL (7-18); CALCIUM LEVEL 8.7 MG/DL (8.5-10.1); CARBON DIOXIDE LEVEL 29 MEQ/L (21-32); CHLORIDE LEVEL 106 MEQ/L (98-107); CHOLESTEROL LEVEL 241 MG/DL (<200); CHOLESTEROL RISK RATIO 4.303 (<5); CREATININE FOR GFR 0.64 MG/DL (0.55-1.30); GLOMERULAR FILTRATION RATE > 60.0 (>51); GLUCOSE, FASTING 89 MG/DL (70-100); HDL CHOLESTEROL 56 MG/DL (>40); LDL CHOLESTEROL 164 MG/DL (<100); NON-HDL-C 185 MG/DL; POTASSIUM SERUM 3.3 MEQ/L (3.5-5.1); SODIUM LEVEL 142 MEQ/L (136-145); TOTAL 25(OH) VITAMIN D 26.4 NG/ML (30.0-100.0); TOTAL PROTEIN 6.9 GM/DL (6.4-8.2); TRIGLYCERIDES LEVEL 107 MG/DL (<150); VITAMIN B12 LEVEL 1277 PG/ML (247-911)
== END ==
LOC: M WUC 11:01
PROVIDERS: ATTEND Nurse Practitioner Adult Health
DX: E55.9 Vitamin D deficiency, unspecified (principal); E78.2 Mixed hyperlipidemia; Z83.3 Family history of diabetes mellitus; Z98.84 Bariatric surgery status

== ENCOUNTER → 2020-02-05 | Outpatient (CLI) | payer OTHER ==
--- NOTE | 2020-02-05 11:26 | REPMRS ---
Patient History The patient states she had a clinical breast exam in 01/2020. Family history of colorectal cancer in maternal grandfather. Took hormonal contraceptives for 1 year. 3D TOMOSYNTHESIS WAS PERFORMED. The Josh Diggs lifetime risk for breast cancer is 6.6%. Volpara breast density b. Digital Woman Screen Mammo: February 05, 2020 - Exam #: [id number] Bilateral CC and MLO view(s) were taken. Technologist: Renetta Fonseca, Technologist Prior study comparison: May 03, 2017, digital woman screen mammo performed at [facility]. December 23, 2015, digital woman screen mammo performed at [facility]. FINDINGS: There are scattered fibroglandular densities. There has been no change in the appearance of the mammogram from the prior studies. There is a mild amount of residual fibroglandular tissue which is fairly symmetric. There is no interval development of dominant mass, architectural distortion, or clustered microcalcification suggestive of malignancy. Assessment: BI-RADS/ACR category 1 mammogram. Negative Mammogram. Recommendation Routine screening mammogram in 1 year (for women over age 40). This mammogram was interpreted with the aid of an FDA-approved computer-aided dectection system. Electronically Signed By: Khadar Lara MD 02/05/20 [id number]
== END ==
LOC: M WHC 09:44
PROVIDERS: ATTEND Nurse Practitioner Women's Health
DX: Z12.31 Encounter for screening mammogram for malignant neoplasm of breast (principal)

== ENCOUNTER → 2020-04-15 | Outpatient (RCR) | payer OTHER | LOC: M PT 04-02 09:12 | PROVIDERS: ATTEND Physician Assistant Surgical | DX: Z51.89 Encounter for other specified aftercare (principal); Z47.89 Encounter for other orthopedic aftercare ==

== ENCOUNTER 2020-05-13 09:26 | Outpatient (RCR) | payer OTHER ==
[2020-05-17] MEDS ORDERED: VITA50005 (12:16)
[2020-05-17] MEDS ORDERED: POTA20TA6 (12:16)
[2020-05-17] MEDS ORDERED: CEPH500C PO (15:16)
== END 2020-05-16 ==
LOC: M PT 09:26
PROVIDERS: ATTEND Physician Assistant Surgical
DX: Z47.89 Encounter for other orthopedic aftercare (principal); S52.502S Unspecified fracture of the lower end of left radius, sequela

== ENCOUNTER 2020-05-17 12:06 | Emergency (ER) | payer OTHER ==
[~2020-05-17] VITALS: Ht 165.1 cm; Wt 80.3 kg
[2020-05-17] MEDS ORDERED: POTA20TA6 (12:16)
[2020-05-17] MEDS ORDERED: VITA50005 (12:16)
--- OUTSIDE RECORDS SUMMARY | 2020-05-17 12:18 | CCD ---
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 Name Role Phone Haily Epstein Unavailable PROBLEMS Type Condition ICD9-CM Code OLG04-TL Code Onset Dates Condition S tatus SNOMED Code Notes Problem Vitamin D deficiency E55.9 Active 72199266 Problem Mixed hyperlipidemia E78.2 Active 630031417 Problem Morbid obesity E66.01 Active 386259416 Problem Personal history of noncompl iance with medical treatment, presenting hazards to health Z91.19 Active 5740951 Problem Impaired fasting blood sugar R73.01 Active 390 613951 Problem Insomnia G47.00 Active 972190381 Problem Surgical menopause, asymptomatic E89.40 Active 856832827 Problem Family history of diabetes mellitus (DM) Z83.3 Active 236384776 Problem Mixed hyperlipidemia 272.2 Active 527342110 Problem Anxiety F41.9 Active 26376722 Problem Acquired absence of both cervix and uterus Z90.710 Active 638327127 Problem Essential hypertension I10 Active 19744261 Problem 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 Acti ve 130829527 Problem Family history of heart disease Z82.49 Active 365283458 Problem Chavis''s esophagus without dysplasia K22.70 A ctive 237449665 Problem Ureteral stone with hydronephrosis N13.2 Activ e 041335767 ALLERGIES Allergen (clinical drug ingredient) Drug/Non Drug Allergy do cumented on EMR Reaction Allergy Type Onset Date Status atorvastatin Lipitor([facility] Code:[address]-27) muscle pain Drug Allergy Active clarithromycin Biaxin Nausea/Vomiting Drug Allergy Act brandon ENCOUNTERS from 1968 to 2020-05-04 Encounter Location Date Provider Diagnosis [facility] Dhaval [address] [place] [id number] Apr, Haily Epstein IMMUNIZATIONS Vaccine Route Administration Date Status TDAP IM Intramuscular July 16, 2012 Administered SOCIAL HISTORY Tobacco Use: Social History Observation Description Date Details (start date - stop date) Never Smoker Sex Assigned At : Social History Observation Description Sex Assigned At Unknown Education: Question Answer Notes Level of Education: Finished High School 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 Yes LMP: total hyster 06/2013 Have you ever had an STD? No Prevention Strategies discussed: Other with Men only Use protection? No Drug and Alcohol Question Answer Notes Total Score: 0 Interpretation: No problems reported BMI Care Goal Follow-Up Question Answer Notes Above Normal BMI Follow-Up Giving encouragement to exercise Tobacco Use: Question Answer Notes Are you a: never smoker never smoker REASON FOR REFERRAL No Information VITAL SIGNS No information MEDICATIONS Medication SIG (Take, Route, Frequency, Duration) Notes Start Da te End Date Status Vitamin B 12 250 MCG Orally otc Act brandon Potassium Gluconate 595 (99 K) MG 1 tab Orally 3 times a week Jan, Active Omeprazole 20 MG 1 capsule Orally once daily Jan, Active Drisdol 22751 UNIT 1 capsule Orally weekly for 30 day(s) 2 Jan, Active Multivitamin Gummies Adults 1 tab orally Daily Active Potassium Chloride 20 MEQ 1 tablet with food Orally Once a day f or 30 day(s) Apr, Active Ergocalciferol 50205 UNIT 1 capsule Orally oncew a week for 90 d ays Jan, Not-Taking Acetaminophen Extra Strength 500 MG 2 tablet Orally three ti mes daily as needed Jan, Active PROCEDURES No Information RESULTS No Results REASON FOR VISIT potassium powder not working for her, derm referral MEDICAL (GENERAL) HISTORY Type Description Date Medical History anxiety Medical History DDD disc with herniation Medical History central obesity, morbid Medical History hyperlipidemia, mixed Medical History Vit D Def Medical History GERD Medical History IFG Medical History essential HTN Medical History Barretts esophagus Medical History post gastric bypass sx 10/2016 Medical History 05/10/16 upper GI Endoscopy m negative for intestinal metaplasiaidly severe esopagitis Surgical History deviated septum repair Surgical History tubal ligation Surgical History wisdom teeth extract Surgical History hysterectomy with BSO, robotic assisted with Dr Chavez 06/19/[address] Noam mckee, Gastric bypass 2016 Hospitalization History childbirth 85, 91, 89 Hospitalization History cellulitis from spider bite 1999, 05 06 Hospitalization History [facility] low potassium 02/2017 Goals Section No Information Health Concerns No Information MEDICAL EQUIPMENT No Information MENTAL STATUS No Information FUNCTIONAL STATUS No Information ASSESSMENTS No Information PLAN OF TREATMENT Medication Medication Name Sig Start Date Stop Date Potassium Chloride 20 MEQ 1 tablet with food Orally Once a d ay for 30 day(s) Apr, Next Appt Details Provider Name:Birgit Feng, 2020-05-31 08:30:00 AM, [address] [place] [address], [id number], Provider Name:Haily Epstein, 10:00:00 AM, [address] [place] [address], [phone], Insurance Providers Payer Name Payer Address Payer Phone Insured Name Patient Relati onship to Insured Coverage Start Date Coverage End Date [facility] [address] [facility] [phone] TIARRA GUTIERREZ self
--- OUTSIDE RECORDS SUMMARY | 2020-05-17 12:18 | CCD | Continuity of Care Document ---
Author Author An JIMENEZ OCC THERAPIST Organization Unknown Address [address] [place] [address] [place] [address] Phone [phone] Care Team Providers Care Tax Manager Name Role Phone Haily Epstein ALEE AUTM [phone] Problems Description No Information Available Social History Type Date Description Comments Sex Unknown ETOH Use Rarely consumes alcohol Tobacco Use Start: Unknown Patient has never smoked Smoking Status Reviewed: 02/19/20 Patient has never smoked Allergies, Adverse Reactions, Alerts Active Allergies Reaction Severity Comments Date Biaxin Nausea and Vomiting 07/15/19 14 Lipitor leg cramps 07/14/2013 Medications Active Medications SIG Qnty Indications Ordering Provide r Date Amoxicillin/Clavulanate Potassium 875-125mg Tablets 1 tabs by mouth twice a day as directed for 10 days 20tabs J01.90 Vladimir Iraheta JR., M.D. 02/19/2020 Fluticasone Propionate 50mcg/Act Suspension 1 spray each nostril once a day 16gm J01.90 Vladimir Iraheta JR., M.D. 02/19/2020 Vitamin D (Ergocalciferol) 84092Eaam Capsules 1 capsule weekly Unknown Tylenol 325mg Tablets prn Unknown Vitamin B12 3000mcg Tablets Sub Unknown Mvi Unknown Immunizations Description No Information Available Vital Signs Date Vital Result Comment 02/19/2020 4:35pm BP Systolic 132 mmHg BP Diastolic 85 mmHg Heart Rate 85 /min Respiratory Rate 14 /min O2 % BldC Oximetry 98 % Body Temperature 97.3 F Weight 165.00 lb Height 65 inches 5'5" BMI (Body Mass Index) 27.5 kg/m2 Pain Level 0 09/19/2017 5:41pm BP Systolic 130 mmHg BP Diastolic 80 mmHg Heart Rate 77 /min Respiratory Rate 18 /min O2 % BldC Oximetry 98 % Body Temperature 98.1 F Weight 131.00 lb Height 65 inches 5'5" BMI (Body Mass Index) 21.8 kg/m2 Pain Level 1 Results Description No Information Available Procedures Description No Information Available Medical Devices Description No Information Available Encounters Type Date Location Provider Dx Diagnosis Office Visit 02/19/2020 5:05p Main Office Karey Jimenez NP J01. 90 Acute sinusitis, unspecified Z20.828 Contact w and exposure to ot h viral communicable diseases Assessments Date Code Description Provider 02/19/2020 J01.90 Acute sinusitis, unspecified Aurora Jimenez NP 02/19/2020 Z20.828 Contact with and (mcgee spected) exposure to other viral communicable diseases Karey Jimenez NP Plan of Treatment 02/19/2020 - Karey Jimenez NP* J01.90 Acute sinusitis, unspecified* New Medication:* Amoxicillin/Clavulanate Potassium 875-125 mg - 1 tabs by mouth twice a day as directed for 10 days * Fluticasone Propionate 50 mcg/Act - 1 spray each nostril once a day * Comments:* tested for COVID-19 today via [facility], results were reported as negativeinfectious course & use of proper protective equipment, adequate handwashing, wearing a mask & keeping 6+ feet distance from others reviewed with patient. rest/time/fluidstake abx as directedOTC allergy medication PRNtylenol/motrin PRN for pain/feverf/u PRN or with PCPpatient v/u & agrees to plan * Z20.828 Contact with and (suspected) exposure to other viral communicable diseases* Comments:* tested for COVID-19 today via [facility], results were reported as negativeinfectious course & use of proper protective equipment, adequate handwashing, wearing a mask & keeping 6+ feet distance from others reviewed with patient. advised supportive care, rest/time/fluidsf/u PRNpatient v/u & agrees to plan Functional Status Description No Information Available Mental Status Description No Information Available Referrals Description No Information Available
--- OUTSIDE RECORDS SUMMARY | 2020-05-17 12:18 | CCD | Continuity of Care Document ---
Author Author An JIMENEZ VP [facility]ET[facility] Organization Unknown Address [address] [place] [address] [place] [address] Phone [phone] Care Team Providers Care Manager Internal Name Role Phone Haily Epstein AELE AUTM [phone] Problems Description No Information Available Social History [...] Iraheta JR., M.D. 02/19/2020 Vitamin D (Ergocalciferol) [id number] Capsules 1 capsule weekly Unknown Tylenol 325mg [...]
--- OUTSIDE RECORDS SUMMARY | 2020-05-17 12:18 | CCD | Continuity of Care Document ---
Author Author An GILLIS PA-C Organization Unknown Address [address] [place] [phone] Phone [phone] Care Team Providers Care Video Effects Editor Name Role Phone Dru Judge MD AUTM Unavailable [facility] Physical Thera - Beckie AUTM Haily Epstein AUTM [phone] Problems Description No Information Available Social History Type Date Description Comments Sex Unknown ETOH Use Rarely consumes alcohol Tobacco Use Start: Unknown Patient has never smoked Allergies, Adverse Reactions, Alerts Active Allergies Reaction Severity Comments Date Bioxin 04/07/2019 Environmental 04/07/2019 Medications Active Medications SIG Qnty Indications Ordering Provide r Date Omeprazole 20mg Capsules DR Take One Capsule By Mouth Twice A Day Unknown Vitamin B12 100mcg Tablets 1 by mouth every day Unknown Vitamin D (Ergocalciferol) 1.25mg (13246 Ut) Capsules Unknown Immunizations Description No Information Available Vital Signs Date Vital Result Comment 01/20/2020 9:30am Body Temperature 98.1 F Height 64.75 inches 5'4.75" Weight 164.00 lb BMI (Body Mass Index) 27.5 kg/m2 Results Description No Information Available Procedures Date Code Description Status 01/20/2020 11525 X-Ray Wrist Complete Completed Medical Devices Description No Information Available Encounters Type Date Location Provider Dx Diagnosis Office Visit 03/31/2020 9:30a [facility] PA-C H52.572 D Oth intartic fx low end l rad, subs for clos fx w routn heal Office Visit 01/20/2020 10:30a [facility] PA-C S52.572 D Oth intartic fx low end l rad, subs for clos fx w routn heal Assessments Date Code Description Provider 03/31/2020 S52.572D Other intraarticular fracture of lower end of left radius, subsequent encounter for closed fracture with routine healing Julia Gillis PA-C 01/20/2020 S52.572D Other intraarticular fracture of lower end of left radius, subsequent encounter for closed fracture with routine healing Julia Gillis PA-C Plan of Treatment Future Appointment(s):* 05/13/2020 11:30 am - Julia Gillis PA-C at [facility] 03/31/2020 - Julia Gillis PA-C* S52.572D Other intraarticular fracture of lower end of left radius, subsequent encounter for closed fracture with routine healing * All * Follow up:* f/u in 5-6 weeks tele med visit Functional Status Description No Information Available Mental Status Description No Information Available Referrals Refer to Dr Reason for Referral Status Appt Date Nga Dinh MD CT SCAN LT WRIST WRITTEN AUTH PASSED TO JOSE ROBERTO. Created [address] [place] [address] [phone] Nga Dinh MD OT- LT WRIST WRITTEN AUTH PA SSED TO CHART GOING TO [facility]. ADVISED PATIENT. LAKESHIA 04/01/20 PER VANGIE OK TO [facility] PT VS OT. Created [address] [place] [address] [phone]
--- OUTSIDE RECORDS SUMMARY | 2020-05-17 12:18 | CCD ---
Author Author [facility] Organization [facility] Address Unknown Phone Unavailable Care Team Providers Care [employer] Name Role Phone Cami Knowles PA-C Unavailable Unavailabl e Cami Knowles, PALinda Unavailable Unavailabl e Cami Knowles, HERRERA Unavailable Unavailabl e Cami Knowles, PALinda Unavailable Unavailabl e Cami Knowles, PA-C Unavailable Unavailabl e Cami Knowles, PA-C Unavailable Unavailabl e Cami Knowles, PA-C Unavailable Unavailabl e Cami Knowles, PAElginC Unavailable Unavailabl e Cami Knowles, PA-C Unavailable Unavailabl e Fish, [facility], PA-C Unavailable Unavailabl e Fish, [facility], PA-C Unavailable Unavailabl e Fish, [facility], PA-C Unavailable Unavailabl e Fish, [facility], PA-C Unavailable Unavailabl e Fish, [facility], PA-C Unavailable Unavailabl e Fish, [facility], PA-C Unavailable Unavailabl e Fish, [facility], PA-C Unavailable Unavailabl e Fish, [facility], PA-C Unavailable Unavailabl e Fish, [facility], PA-C Unavailable Unavailabl e Fish, [facility], PA-C Unavailable Unavailabl e Fish, [facility], PA-C Unavailable Unavailabl e Fish, [facility], PA-C Unavailable Unavailabl e Fish, [facility], PA-C Unavailable Unavailabl e Fish, [facility], PA-C Unavailable Unavailabl e Fish, [facility], PA-C Unavailable Unavailabl e Fish, [facility], PA-C Unavailable Unavailabl e Fish, [facility], PA-C Unavailable Unavailabl e Fish, [facility], PA-C Unavailable Unavailabl e Fish, [facility], PA-C Unavailable Unavailabl e Fish, [facility], PA-C Unavailable Unavailabl e Fish, [facility], PA-C Unavailable Unavailabl e Fish, [facility], PA-C Unavailable Unavailabl e Fish, [facility], PA-C Unavailable Unavailabl e Fish, [facility], PA-C Unavailable Unavailabl e Tom Mendes MD Unavailable Unavailable Tom Mendes MD Unavailable Unavailable Tom Mendes MD Unavailable Unavailable Tom Mendes MD Unavailable Unavailable Tom Mendes MD Unavailable Unavailable Tom Mendes MD Unavailable Unavailable Tom Mendes MD Unavailable Unavailable Tom Mendes MD Unavailable Unavailable Tom Mendes MD Unavailable Unavailable Tom Mendes MD Unavailable Unavailable Tom Mendes MD Unavailable Unavailable HeitTom jewell MD Unavailable Unavailable Heitbest, Tom Sanchez MD Unavailable Unavailable Heitbest, Tom Sanchez MD Unavailable Unavailable Heitbest, Tom Sanchez MD Unavailable Unavailable Heitbest, Tom Sanchez MD Unavailable Unavailable Heitbest, Tom Sanchez MD Unavailable Unavailable Helavinia, Tom Sanchez MD Unavailable Unavailable Helavinia, Tom Sanchez MD Unavailable Unavailable Heitbest, Tom Sanchez MD Unavailable Unavailable Heitbest, Tom Sanchez MD Unavailable Unavailable Heitner, Tom Sanchez MD Unavailable Unavailable Heitner, Tom Sanchez MD Unavailable Unavailable Heitner, Tom Sanchez MD Unavailable Unavailable Heitner, Tom Sanchez MD Unavailable Unavailable Marti, Karey METROPOLITAN EDITOR Unavailable Unavailable Marti, Karey METROPOLITAN EDITOR Unavailable Unavailable Marti, Karey METROPOLITAN EDITOR Unavailable Unavailable Marti, Karey METROPOLITAN EDITOR Unavailable Unavailable Marti, Karey METROPOLITAN EDITOR Unavailable Unavailable Marti, Karey METROPOLITAN EDITOR Unavailable Unavailable Marti, Karey METROPOLITAN EDITOR Unavailable Unavailable Marti, Karey METROPOLITAN EDITOR Unavailable Unavailable Marti, Karey METROPOLITAN EDITOR Unavailable Unavailable Marti, Karey METROPOLITAN EDITOR Unavailable Unavailable Marti, Karey METROPOLITAN EDITOR Unavailable Unavailable SILVIA KENDRICK MD Unavailable Unavailable SILVIA KENDRICK MD Unavailable Unavailable SILVIA KENDRICK MD Unavailable Unavailable SILVIA KENDRICK MD Unavailable Unavailable SILVIA KENDRICK MD Unavailable Unavailable SILVIA KENDRICK MD Unavailable Unavailable SILVIA KENDRICK MD Unavailable Unavailable SILVIA KENDRICK MD Unavailable Unavailable SILVIA KENDRICK MD Unavailable Unavailable SILVIA KENDRICK MD Unavailable Unavailable SILVIA KENDRICK MD Unavailable Unavailable SILVIA KENDRICK MD Unavailable Unavailable SILVIA KENDRICK MD Unavailable Unavailable SILVIA KENDRICK MD Unavailable Unavailable SILVIA KENDRICK MD Unavailable Unavailable SILVIA KENDRICK MD Unavailable Unavailable SILVIA KENDRICK MD Unavailable Unavailable SILVIA KENDRICK MD Unavailable Unavailable SILVIA KENDRICK MD Unavailable Unavailable SILVIA KENDRICK MD Unavailable Unavailable SILVIA KENDRICK MD Unavailable Unavailable SILVIA KENDRICK MD Unavailable Unavailable SILVIA KENDRICK MD Unavailable Unavailable SILVIA KENDRICK MD Unavailable Unavailable SILVIA KENDRICK MD Unavailable Unavailable SILVIA KENDRICK MD Unavailable Unavailable SILVIA KENDRICK MD Unavailable Unavailable SILVIA KENDRICK MD Unavailable Unavailable SILVIA KENDRICK MD Unavailable Unavailable SILVIA KENDRICK MD Unavailable Unavailable Re-disclosure Warning The records that you are about to access may contain information from federally-assisted alcohol or drug abuse programs. If such information is present, then the following federally mandated warning applies: This information has been disclosed to you from records protected by federal confidentiality rules (42 CFR part 2). The federal rules prohibit you from making any further disclosure of this information unless further disclosure is expressly permitted by the written consent of the person to whom it pertains or as otherwise permitted by 42 CFR part 2. A general authorization for the release of medical or other information is NOT sufficient for this purpose. The Federal rules restrict any use of the information to criminally investigate or prosecute any alcohol or drug abuse patient.The records that you are about to access may contain highly sensitive health information, the redisclosure of which is protected by Article 27-F of the [facility] Public Health law. If you continue you may have access to information: Regarding HIV / AIDS; Provided by facilities licensed or operated by the [facility] Office of Mental Health; or Provided by the [facility] Office for People With Developmental Disabilities. If such information is present, then the following [facility] mandated warning applies: This information has been disclosed to you from confidential records which are protected by state law. State law prohibits you from making any further disclosure of this information without the specific written consent of the person to whom it pertains, or as otherwise permitted by law. Any unauthorized further disclosure in violation of state law may result in a fine or correction sentence or both. A general authorization for the release of medical or other information is NOT sufficient authorization for further disc losure. Family History Family Member Name Family Member Gender Family Member Status Date o f Status Description Data Source(s) Unknown Male Problem [facility] ([facility]) Unknown Unknown Problem [facility] ([facility]) Unknown Unknown Problem [facility] ([facility]) Encounters Encounter Providers Location Date Indications Data Source(s ) [place] [address] [facility] [address] 05/03/2020 12:00:00 AM EST eCW1 ([facility]) Outpatient Attender: Julia GUO PA-C Physical Therapy 03/31/2020 08:30:00 AM EST [facility] ([facility]) [place] [address] [facility] [address] 03/01/2020 12:00:00 AM EST eCW1 ([facility]) Outpatient Attender: Karey gambino 02/19/2020 04:05:00 PM EST [facility] ([facility] [place] [address] [facility] [address] 02/05/2020 12:00:00 AM EDT eCW1 ([facility]) Outpatient Attender: Julia GUO PA-C Physical Therapy 01/20/2020 10:30:00 AM EDT [facility] ([facility]) [place] [address] [facility] [address] 10/30/2019 12:00:00 AM EDT eCW1 ([facility]) Outpatient Attender: Daniel Mendes MD Physical Therapy 01/2020 11:00:00 AM EDT MED[facility] ([facility]) Outpatient Attender: Daniel Mendes MD Physical Therapy 11/2019 03:30:00 PM EDT MED[facility] ([facility]) Outpatient 04/23/2019 09:21:00 PM EST [facility] Outpatient 04/22/2019 02:08:00 PM EST [facility] OFFICE OUTPATIENT NEW 30 MINUTES Attender: SILVIA KENDRICK MD Ph ysical Therapy 03/31/2019 10:00:00 AM EST [facility] ([facility]) Medications Medication Brand Name Start Date Product Form Dose Route Admi nistrative Instructions Pharmacy Instructions Status Indications Reaction Description Data Source(s) 20 mEq 05/04/2020 12:00:00 AM EST tablet,ER particles/cry stals 30 TAKE ONE TABLET BY MOUTH EVERY DAY WITH FOOD TAKE ONE TABLET BY MOUTH EVERY DAY WITH FOOD SOLD: 05/07/2020 [facility] Potassium Chloride 20 MEQ UNK 05/04/2020 12:00:00 AM EST 1.0 {tablet_with_food} active Potassium Chl oride 20 MEQ eCW1 ([facility]) Amoxicillin 875 MG / Clavulanate 125 MG Oral Tablet Am oxicillin/Clavulanate Potassium 02/19/2020 12:00:00 AM EST ORAL active MED[facility] ([facility]) Fluticasone Propionate Fluticasone Propionate 02/19/2020 12:00:[address] active MED[facility] ([facility]) 20 mEq 01/15/2020 12:00:00 AM EDT packet 30 TAKE 1 PACKET BY MOUTH ONCE DAILY TAKE 1 PACKET BY MOUTH ONCE DAILY SOLD: 03/05/2020 [facility] 20 mg 01/15/2020 12:00:00 AM EDT capsule,delayed release (DR/EC) 30 TAKE ONE CAPSULE BY MOUTH EVERY DAY TAKE ONE CAPSULE BY MOUTH EVERY DAY SOLD: 01/16/2020 [facility] 1,250 mcg (50,000 unit) 01/15/2020 12:00:00 AM EDT capsule 4 TAKE 1 CAPSULE BY MOUTH ONCE WEEKLY TAKE 1 CAPSULE BY MOUTH ONCE WEEKLY SOLD: 01/16/2020 [facility] 20 mg 01/15/2020 12:00:00 AM EDT capsule,delayed release (DR/EC) 30 TAKE ONE CAPSULE BY MOUTH EVERY DAY TAKE ONE CAPSULE BY MOUTH EVERY DAY SOLD: 03/05/2020 [facility] 1,250 mcg (50,000 unit) 01/15/2020 12:00:00 AM EDT capsule 4 TAKE 1 CAPSULE BY MOUTH ONCE WEEKLY TAKE 1 CAPSULE BY MOUTH ONCE WEEKLY SOLD: 03/05/2020 [facility] 20 mEq 01/15/2020 12:00:00 AM EDT packet 30 TAKE 1 PACKET BY MOUTH ONCE DAILY TAKE 1 PACKET BY MOUTH ONCE DAILY SOLD: 01/16/2020 [facility] 0.12 % 11/28/2019 12:00:00 AM EDT mouthwash 473 RINSE WITH 1-2 TEASPOONFUL THREE TIMES A DAY SWISH AND SPIT OUT START SUNDAY RINSE WITH 1-2 TEASPOONFUL THREE TIMES A DAY SWISH AND SPIT OUT START SUNDAY SOLD: 11/28/2019 [facility] 500 mg 11/28/2019 12:00:00 AM EDT capsule 21 TAKE ONE CAPSULE BY MOUTH EVERY 8 HOURS UNTIL GONE TAKE ONE CAPSULE BY MOUTH EVERY 8 HOURS UNTIL GONE ALTA [facility] 5-325 mg 11/28/2019 12:00:00 AM EDT tablet 20 TAKE ONE TABLET BY MOUTH EVERY 4 TO 6 HOURS NEEDED FOR PAIN. MAXIMUM DAILY DOSE = 5 TAKE ONE TABLET BY MOUTH EVERY 4 TO 6 HOURS NEEDED FOR PAIN. MAXIMUM DAILY DOSE = 5 SOLD: 11/28/2019 [facility] 875-125 mg 11/13/2019 12:00:00 AM EDT tablet 20 TAKE ONE TABLET BY MOUTH TWICE A DAY FOR 10 DAYS TAKE ONE TABLET BY MOUTH TWICE A DAY FOR 10 DAYS SOLD: 11/13/2019 [facility] 50 mcg/actuation 11/13/2019 12:00:00 AM EDT spray,suspension 16 SPRAY TWO SPRAYS IN EACH NOSTRIL EVERY DAY SPRAY TWO SPRAYS IN EACH NOSTRIL EVERY DAY SOLD: 11/13/2019 [facility] 0.12 % 07/25/2019 12:00:00 AM EDT mouthwash 473 STARTING TOMORROW USE 5-10ML BY MOUTH TO RISNE AND SPIT THREE TIMES A DAY STARTING TOMORROW USE 5-10ML BY MOUTH TO RISNE AND SPIT THREE TIMES A DAY SOLD: 07/25/2019 [facility] 500 mg 07/25/2019 12:00:00 AM EDT capsule 21 TAKE ONE CAPSULE BY MOUTH EVERY 8 HOURS TAKE ONE CAPSULE BY MOUTH EVERY 8 HOURS SOLD: 07/25/2019 [facility] 5-325 mg 07/25/2019 12:00:00 AM EDT tablet 20 TAKE ONE TABLET BY MOUTH EVERY 4 TO 6 HOURS NEEDED FOR PAIN MAXIMUM DAILY DOSE = 5 TABLETS TAKE ONE TABLET BY MOUTH EVERY 4 TO 6 HOURS NEEDED FOR PAIN MAXIMUM DAILY DOSE = 5 TABLETS SOLD: 07/25/2019 [facility] 5-325 mg 04/15/2019 12:00:00 AM EST tablet 30 TAKE 1-2 TABLETS BY MOUTH EVERY 6 HOURS NEEDED FOR POST SURGICAL PAIN MAXIMUM DAILY DOSE = 8 TABLETS TAKE 1-2 TABLETS BY MOUTH EVERY 6 HOURS NEEDED FOR POST SURGICAL PAIN MAXIMUM DAILY DOSE = 8 TABLETS SOLD: 04/15/2019 [facility] Acetaminophen 325 MG / Hydrocodone Bitartrate 5 MG Ora l Tablet Hydrocodone-Acetaminophen 04/14/2019 12:00:00 AM EST ORAL active MEDENT ([facility]) 50 mg 04/03/2019 12:00:00 AM EST tablet 30 TAKE ONE TO TWO TABLETS BY MOUTH EVERY 6 HOURS NEEDED FOR PAIN MAXIMUM DAILY DOSE = 6 TAKE ONE TO TWO TABLETS BY MOUTH EVERY 6 HOURS NEEDED FOR PAIN MAXIMUM DAILY DOSE = 6 SOLD: 04/04/2019 [facility] 50 mg 03/31/2019 12:00:00 AM EST tablet 10 TAKE ONE TABLET BY MOUTH EVERY 6 HOURS NEEDED MAXIMUM DAILY DOSE = 4 TABLETS TAKE ONE TABLET BY MOUTH EVERY 6 HOURS NEEDED MAXIMUM DAILY DOSE = 4 TABLETS SOLD: 03/31/2019 [facility] tramadol hydrochloride 50 MG Oral Tablet Tramadol HCL 03/31/2019 12:00:00 AM EST active [facility] Insurance Providers Payer name Policy type / Coverage type Policy ID Covered alliance party ID Covered alliance party's relationship to castellon Policy Castellon Plan Information 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 WORKER COMP [id number] SP [id number] RUBEN KENT O [id number] S [id number] [facility] O [id number] S [id number] [facility] [id number] SP [id number] RUBEN KENT O [id number] S [id number] 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 [id number] Self [id number] [facility] Health Maintenance Organization (HMO) Self [facility] [id number] SP [id number] [facility] [id number] SP [id number] [facility] Health Maintenance Organization (HMO) Self SELF PAY UNAVAILABLE SP UNAVAILA BLE BLUE [address]OSS [address] [id number] SP [id number] MEDICAID [id number] SP [id number] HMO BLUE [id number] SP [id number] Problems, Conditions, and Diagnoses Code Display Name Description Problem Type Effective Dates Data Source(s) Z90.710 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 Problem 02/02/2020 12:00:00 AM EDT eCW1 ([facility]) 272.2 Mixed hyperlipidemia Mixed hyperlipidemia Problem 10/21/2019 12:00:00 AM EDT eCW1 ([facility]) Surgeries/Procedures Procedure Description Date Indications Data Source(s) RADEX WRIST COMPLETE MINIMUM 3 VIEWS 01/20/2020 12:00: 00 AM EDT [facility] ([facility] RADEX WRIST 2 VIEWS 09/24/2019 12:00:00 AM EDT [facility] ([facility] ) THERAPEUTIC PX 1/> AREAS EACH 15 MIN EXERCISES 12:00:00 AM EDT [facility] ([facility] THERAPEUTIC PX 1/> AREAS EACH 15 MIN EXERCISES 12:00:00 AM EDT [facility] ([facility] THERAPEUTIC PX 1/> AREAS EACH 15 MIN EXERCISES 12:00:00 AM EDT [facility] ([facility] THERAPEUTIC PX 1/> AREAS EACH 15 MIN EXERCISES 12:00:00 AM EDT [facility] ([facility] THERAPEUTIC PX 1/> AREAS EACH 15 MIN EXERCISES 12:00:00 AM EDT [facility] ([facility] APPLICATION MODALITY 1/> AREAS HOT/COLD PACKS 07/14/19 12:00:00 AM EDT [facility] ([facility] ) THERAPEUTIC PX 1/> AREAS EACH 15 MIN EXERCISES 12:00:00 AM EDT MED[facility] ([facility] ) APPLICATION MODALITY 1/> AREAS HOT/COLD PACKS 07/09/19 12:00:00 AM EDT [facility] ([facility] ) THERAPEUTIC PX 1/> AREAS EACH 15 MIN EXERCISES 12:00:00 AM EDT [facility] ([facility] ) THERAPEUTIC PX 1/> AREAS EACH 15 MIN EXERCISES 12:00:00 AM EDT [facility] ([facility] ) APPLICATION MODALITY 1/> AREAS HOT/COLD PACKS 07/07/19 12:00:00 AM EDT [facility] ([facility] ) APPLICATION MODALITY 1/> AREAS HOT/COLD PACKS 07/02/19 20 12:00:00 AM EDT [facility] ([facility]) THERAPEUTIC PX 1/> AREAS EACH 15 MIN EXERCISES 12:00:00 AM EDT [facility] ([facility]) APPLICATION MODALITY 1/> AREAS HOT/COLD PACKS 06/30/19 12:00:00 AM EDT [facility] ([facility]) THERAPEUTIC PX 1/> AREAS EACH 15 MIN EXERCISES 12:00:00 AM EDT MED[facility] ([facility]) THERAPEUTIC PX 1/> AREAS EACH 15 MIN EXERCISES 12:00:00 AM EDT MED[facility] ([facility]) APPLICATION MODALITY 1/> AREAS HOT/COLD PACKS 06/27/19 12:00:00 AM EDT [facility] ([facility]) THERAPEUTIC PX 1/> AREAS EACH 15 MIN EXERCISES 12:00:00 AM EDT MED[facility] ([facility]) THERAPEUTIC PX 1/> AREAS EACH 15 MIN EXERCISES 12:00:00 AM EDT MED[facility] ([facility] ) THERAPEUTIC PX 1/> AREAS EACH 15 MIN EXERCISES 12:00:00 AM EDT MED[facility] ([facility] ) THERAPEUTIC PX 1/> AREAS EACH 15 MIN EXERCISES 12:00:00 AM EDT MED[facility] ([facility]) APPLICATION MODALITY 1/> AREAS HOT/COLD PACKS 06/25/19 12:00:00 AM EDT MED[facility] ([facility]) APPLICATION MODALITY 1/> AREAS HOT/COLD PACKS 06/23/19 12:00:00 AM EDT [facility] ([facility]) THERAPEUTIC PX 1/> AREAS EACH 15 MIN EXERCISES 12:00:00 AM EDT MED[facility] ([facility]) THERAPEUTIC PX 1/> AREAS EACH 15 MIN EXERCISES 12:00:00 AM EDT MED[facility] ([facility]) APPLICATION MODALITY 1/> AREAS HOT/COLD PACKS 06/20/19 12:00:00 AM EST [facility] ([facility]) THERAPEUTIC PX 1/> AREAS EACH 15 MIN EXERCISES 12:00:00 AM EST [facility] ([facility]) THERAPEUTIC PX 1/> AREAS EACH 15 MIN EXERCISES 12:00:00 AM EST [facility] ([facility] ) APPLICATION MODALITY 1/> AREAS HOT/COLD PACKS 06/18/19 12:00:00 AM EST [facility] ([facility] ) THERAPEUTIC PX 1/> AREAS EACH 15 MIN EXERCISES 12:00:00 AM EST MED[facility] ([facility]) THERAPEUTIC PX 1/> AREAS EACH 15 MIN EXERCISES 12:00:00 AM EST [facility] ([facility] ) THERAPEUTIC PX 1/> AREAS EACH 15 MIN EXERCISES 12:00:00 AM EST [facility] ([facility] ) THERAPEUTIC PX 1/> AREAS EACH 15 MIN EXERCISES 12:00:00 AM EST [facility] ([facility] ) APPLICATION MODALITY 1/> AREAS HOT/COLD PACKS 06/16/19 12:00:00 AM EST [facility] ([facility]) APPLICATION MODALITY 1/> AREAS HOT/COLD PACKS 06/12/19 12:00:00 AM EST [facility] ([facility]) THERAPEUTIC PX 1/> AREAS EACH 15 MIN EXERCISES 12:00:00 AM EST [facility] ([facility]) THERAPEUTIC PX 1/> AREAS EACH 15 MIN EXERCISES 12:00:00 AM EST MED[facility] ([facility]) Physical Therapy Eval - Low Complexity 06/10/2019 12:0 0:00 AM EST MED[facility] ([facility]) RADEX WRIST COMPLETE MINIMUM 3 VIEWS 05/27/2019 12:00: 00 AM EST [facility] ([facility]) RADEX WRIST 2 VIEWS 05/05/2019 12:00:00 AM EST [facility] ([facility] Apply Splint Short Arm Static 04/18/2019 12:00:[address] [facility] ([facility] ) APPLICATION CAST ELBOW FINGER SHORT ARM 04/18/2019 12: 00:00 AM EST MED[facility] ([facility]) OPTX DSTL RADL I-ARTIC FX/EPIPHYSL SEP 3 FRAG 04/14/20 19 12:00:00 AM EST [facility] ([facility]) CLTX DSTL RDL FX/EPIPHYSL SEP W/MANJ WHEN PERF 019 12:00:00 AM EST [facility] ([facility] ) CLTX DSTL RDL FX/EPIPHYSL SEP W/MANJ WHEN PERF 019 12:00:00 AM EST [facility] ([facility] ) RADEX WRIST 2 VIEWS 03/31/2019 12:00:00 AM EST [facility] ([facility] ) RADEX WRIST 2 VIEWS 03/31/2019 12:00:00 AM EST [facility] ([facility] ) Results ID Date Data Source [id number] 03/09/2020 12:00:00 AM EST [facility] Julia Knowles Pa-C Patient Name: VEENA WALLIS [facility] Date of : 1970[place] [address]- Date of Exam: 03/09/2020#: Fax: [phone] EXAM: CT UPPER LEFT EXTREMITY WITHOUT CONTRASTCLINICAL INFORMATION: Assess healing. The patient is status post ORIF.There are no prior left wrist CT's for comparison.Low dose 64 slice helical scanning through the left wrist was obtainedusing 2 mm increments and reconstructed in both coronal and sagittalplanes. 3D reconstructions were also obtained. Post processing wasperformed at the physician's workstation.On 04/14/2019, the patient underwent ORIF for intraarticular distal radialcomminuted fractures.There is an internal fixation plate applied to the distal radius affixing apreviously described distal radial fracture. The cortical margin of thearticular surface of the distal radius is somewhat irregular, however,there is no evidence of an acute fracture and the fracture appears to havehealed. There is radiocarpal joint space narrowing. None of the affixingscrews breech the joint space. The fixation plate is intact. Milddegenerative change is seen involving the distal radioulnar joint.IMPRESSION:Evidence of healed distal radial fracture secondary to previous ORIF asdescribed above.Accredited by the [employer] in [place].DAT Lozano/Yadira cade for referring TIARRA WALLIS to our office. Electronically Signed - LORENZA APONTE DO 03/10/20 15:30 Name Value Range Interpretation Code Description Data Rosalva rce(s) Supporting Document(s) Procedure Social History Code Duration Value Status Description Data Source(s ) Smoking 02/19/2020 12:00:00 AM EST Patient has never smoked co mpleted Patient has never smoked MEDENT ([facility]) Smoking 02/05/2020 12:00:00 AM EDT Never Smoker completed Never S moker eCW1 ([facility]) Smoking 02/05/2020 12:00:00 AM EDT Never Smoker completed Never S moker eCW1 ([facility]) Smoking 02/05/2020 12:00:00 AM EDT Never Smoker completed Never S moker eCW1 ([facility]) Vital Signs ID Date Data Source UNK Name Value Range Interpretation Code Description Data Source(s) Body mass index (BMI) [Ratio] 27.5 kg/m2 27.5 k g/m2 [facility] Body height 65 [in_i] 65 [in_i] MED[facility] ([facility]) 5'5" Body weight 165.00 [lb_av] 165.00 [lb_av] MEDEN T ([facility]) Body temperature 97.3 [degF] 97.3 [degF] [facility] Oxygen saturation in Arterial blood by Pulse oximetry 98 % 98 % [facility] ([facility]) Respiratory rate 14 /min 14 /min [facility] ( [facility]) Heart rate 85 /min 85 /min [facility] [facility] Diastolic blood pressure 85 mm[Hg] 85 mm[Hg] MEDENT ([facility], [facility]) Systolic blood pressure 132 mm[Hg] 132 mm[Hg] M EDENT ([facility], [facility]) Diastolic blood pressure 84 mm[Hg] 84 mm[Hg] eCW1 ([facility]) Systolic blood pressure 142 mm[Hg] 142 mm[Hg] e CW1 ([facility]) Body mass index (BMI) [Ratio] 25.96 kg/m2 25.96 kg/m2 [facility] ([facility]) Body height 65 [in_i] 65 [in_i] W1 ([facility]) Body weight 70.76 kg 70.76 kg [facility] ([facility]) Body weight 156 [lb_av] 156 [lb_av] eCW1 ([facility]) Body mass index (BMI) [Ratio] 27.5 kg/m2 27.5 k g/m2 MEDENT ([facility] ) Body weight 164.00 [lb_av] 164.00 [lb_av] MEDEN T ([facility] ) Body height 64.75 [in_i] 64.75 [in_i] MEDENT ([facility]) 5'4.75" Body temperature 98.1 [degF] 98.1 [degF] MEDENT ([facility] ) Patient Treatment Plan of Care Planned Activity Planned Date Details Description Data Source (s) Potassium Chloride 20 MEQ 05/04/2020 12:00:00 AM EST [facility] ([facility])
--- OUTSIDE RECORDS SUMMARY | 2020-05-17 12:18 | CCD ---
Author Author [facility] Organization [facility] Address Unknown Phone Unavailable Care Team Providers Care Billing Analyst Name Role Phone Haily Epstein Unavailable PROBLEMS Type Condition ICD9-CM Code [id number] Code Onset Dates Condition S tatus SNOMED Code Notes Problem Vitamin D deficiency E55.9 Active 27304320 Problem Mixed hyperlipidemia E78.2 Active 537231494 Problem Morbid obesity E66.01 Active 948285062 Problem Personal history of noncompl iance with medical treatment, presenting hazards to health Z91.19 Active 2606103 Problem Impaired fasting blood sugar R73.01 Active 390 452667 Problem Insomnia G47.00 Active 544063620 Problem Surgical menopause, asymptomatic E89.40 Active 796658676 Problem Family history of diabetes mellitus (DM) Z83.3 Active 583610168 Problem Mixed hyperlipidemia 272.2 Active 160517615 Problem Anxiety F41.9 Active 75561674 Problem Acquired absence of both cervix and uterus Z90.710 Active 002038283 Problem Essential hypertension I10 Active 25498283 Problem 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 Acti ve 766090362 Problem Family history of heart disease Z82.49 Active 692412762 Problem Chavis''s esophagus without dysplasia K22.70 A ctive 622901124 Problem Ureteral stone with hydronephrosis N13.2 Activ e 310574670 ALLERGIES Allergen (clinical drug ingredient) Drug/Non Drug Allergy do cumented on EMR Reaction Allergy Type Onset Date Status atorvastatin Lipitor([facility] Code:[address]-99) muscle pain Drug Allergy Active clarithromycin Biaxin Nausea/Vomiting Drug Allergy Act brandon ENCOUNTERS from 1970 to 2020-03-03 Encounter Location Date Provider Diagnosis [facility] Dhaval [address] [place] [id number] Feb, Haily Epstein IMMUNIZATIONS Vaccine Route Administration Date [...] Education Language: Question Answer Notes Languages spoken: Mongolian Sexual Hx: Question Answer Notes Had sex [...] Notes Start Da te End Date Status Multivitamin Gummies Adults 1 tab orally Daily Active Acetaminophen Extra Strength 500 MG 2 tablet Orally three ti mes daily as needed Jan, Active Potassium Gluconate 595 (99 K) MG 1 tab Orally 3 times a week Jan, Active Ergocalciferol 07905 UNIT 1 capsule Orally oncew a week for 90 d ays Jan, Not-Taking Vitamin B 12 250 MCG Orally otc Act brandon Omeprazole 20 MG 1 capsule Orally once daily Jan, Active Drisdol 28014 UNIT 1 capsule Orally weekly for 30 day(s) 2 Jan, Active PROCEDURES No Information RESULTS No Results REASON FOR VISIT [facility] MEDICAL (GENERAL) HISTORY Type Description Date Medical [...] 94 Hospitalization History cellulitis from spider bite Hospitalization History [facility] low potassium 02/2017 Goals Section No Information Health Concerns No Information MEDICAL EQUIPMENT No Information MENTAL STATUS No Information FUNCTIONAL STATUS No Information ASSESSMENTS No Information PLAN OF TREATMENT Next Appt Details Provider Name:Haily Epstein, 10:00:00 AM, [address] [place], [address], Insurance Providers Payer Name Payer Address Payer Phone Insured Name Patient Relati onship to Insured Coverage Start Date Coverage End Date [facility] [employer] [address] [facility] [phone] TIARRA GUTIERREZ self
--- OUTSIDE RECORDS SUMMARY | 2020-05-17 12:18 | CCD | Continuity of Care Document ---
Author Author An GILLIS PA-C Organization Unknown Address [address] [place] [address] Phone [phone] Care Team Providers Care Welder Tech Name Role Phone Dru Judge MD AUTM Unavailable [facility] Physical Thera - Beckie AUTM Haily Epstein AUTM [phone] Problems Description No Information Available Social History Type Date Description Comments Sex Unknown ETOH Use Denies alcohol use Tobacco Use Start: Unknown Denies Smoking Allergies, Adverse Reactions, Alerts Active Allergies Reaction Severity Comments Date Bioxin 04/07/2019 Environmental 04/07/2019 Medications Active Medications SIG Qnty Indications Ordering Provide r Date Hydrocodone-Acetaminophen 5-325mg Tablets 1-2 tabs po q6h prn / post surgical pain 30tabs Daniel Mendes MD 04/14/2019 Tramadol HCL 50mg Tablets 1-2 tablets every 6 hours as needed for pain, comp 30tabs S52.572A Anselmo Wang MD 03/31/[address] Take One Capsule By Mouth Twice A Day Unknown Vitamin B12 100mcg Tablets 1 by mouth every day Unknown Immunizations Description No Information Available Vital Signs Date Vital Result Comment 01/20/2020 9:30am Body Temperature 98.1 F Height 64.75 inches 5'4.75" Weight 164.00 lb BMI (Body Mass Index) 27.5 kg/m2 Results Description No Information Available Procedures Date Code Description Status 01/20/2020 64862 X-Ray Wrist Complete Completed Medical Devices Description No Information Available Encounters Type Date Location Provider Dx Diagnosis Office Visit 01/20/2020 10:30a Meridenchema Gillis PA-C S52.572 D Oth intartic fx [...] healing Julia Gillis PA-C Plan of Treatment 03/31/2020 - Julia Gillis PA-C* S52.572D Other intraarticular fracture of lower end of left radius, subsequent encounter for closed fracture with routine healing * All * Follow up:* f/u in 5-6 weeks tele med visit Functional Status Description No Information Available Mental Status Description No Information Available Referrals Refer to Reason for Referral Status Appt Date Nga Dinh MD CT SCAN LT WRIST WRITTEN AUTH PASSED TO JOSE ROBERTO. Created [address] [place] [address] [phone] Nga Dinh MD OT- LT WRIST WRITTEN AUTH PA SSED TO CHART GOING TO [facility]. ADVISED PATIENT. Created [address] [place] [address] [phone]
--- NOTE | 2020-05-17 12:48 | REP ---
INDICATION: laceration COMPARISON: None. TECHNIQUE: Four views right hand. FINDINGS: There is no evidence of acute fracture, dislocation, or intrinsic bone disease.No radiopaque foreign body is seen in the soft tissues. IMPRESSION: No fracture or dislocation. <Electronically signed by Khadar Lara > 05/17/20 1969
--- OUTSIDE RECORDS SUMMARY | 2020-05-17 14:25 | CCD ---
Author Author [facility] Organization [facility] Address Unknown Phone Unavailable Care Team Providers Care Information Technology Advisor Name Role Phone Cami Knowles PA-C Unavailable Unavailabl e Cami Knowles, PALinda Unavailable Unavailabl e Cami Knowles, HERRERA Unavailable Unavailabl e Cami Knowles, PALinda Unavailable Unavailabl e Cami Knowles, PA-C Unavailable Unavailabl e Cami Knowles, PA-C Unavailable Unavailabl e Cami Knowles, PA-C Unavailable Unavailabl e Cami Knowles, PAElginC Unavailable Unavailabl e Cami Knowles, PA-C Unavailable Unavailabl e Fish, [facility], PA-C Unavailable Unavailabl e Fish, [facility], PA-C Unavailable Unavailabl e Fish, [facility], PA-C Unavailable Unavailabl e Fish, [facility], PA-C Unavailable Unavailabl e Fish, [facility], PA-C Unavailable Unavailabl e Fish, [facility], PA-C Unavailable Unavailabl e Fish, [facility], PA-C Unavailable Unavailabl e Fish, [facility], PA-C Unavailable Unavailabl e Fish, [facility], PA-C Unavailable Unavailabl e Fish, [facility], PA-C Unavailable Unavailabl e Fish, [facility], PA-C Unavailable Unavailabl e Fish, [facility], PA-C Unavailable Unavailabl e Fish, [facility], PA-C Unavailable Unavailabl e Fish, [facility], PA-C Unavailable Unavailabl e Fish, [facility], PA-C Unavailable Unavailabl e Fish, [facility], PA-C Unavailable Unavailabl e Fish, [facility], PA-C Unavailable Unavailabl e Fish, [facility], PA-C Unavailable Unavailabl e Fish, [facility], PA-C Unavailable Unavailabl e Fish, [facility], PA-C Unavailable Unavailabl e Fish, [facility], PA-C Unavailable Unavailabl e Fish, [facility], PA-C Unavailable Unavailabl e Fish, [facility], PA-C Unavailable Unavailabl e Fish, [facility], PA-C Unavailable Unavailabl e Tom Mendes MD [...] Tom Sanchez MD Unavailable Unavailable Marti, Karey HEAVY EQUIPMENT OPERATOR/PAVER Unavailable Unavailable Marti, Karey HEAVY EQUIPMENT OPERATOR/PAVER Unavailable Unavailable Marti, Karey HEAVY EQUIPMENT OPERATOR/PAVER Unavailable Unavailable Marti, Karey HEAVY EQUIPMENT OPERATOR/PAVER Unavailable Unavailable Marti, Karey HEAVY EQUIPMENT OPERATOR/PAVER Unavailable Unavailable Marti, Karey HEAVY EQUIPMENT OPERATOR/PAVER Unavailable Unavailable Marti, Karey HEAVY EQUIPMENT OPERATOR/PAVER Unavailable Unavailable Marti, Karey HEAVY EQUIPMENT OPERATOR/PAVER Unavailable Unavailable Marti, Karye HEAVY EQUIPMENT OPERATOR/PAVER Unavailable Unavailable Marti, Karey HEAVY EQUIPMENT OPERATOR/PAVER Unavailable Unavailable Marti, Karey HEAVY EQUIPMENT OPERATOR/PAVER Unavailable Unavailable SILVIA KENDRICK MD Unavailable Unavailable [...] is protected by Article 27-F of the [facility] Public Health law. If you continue you may have access to information: Regarding HIV / AIDS; Provided by facilities licensed or operated by the [facility] Office of Mental Health; or Provided by the [facility] Office for People With Developmental Disabilities. If such information is present, then the following [facility] mandated warning applies: This information has been [...] law may result in a fine or senior care sentence or both. A general authorization for the release of medical or other information is NOT sufficient authorization for further disc losure. Family History Family Member Name Family Member Gender Family Member Status Date o f Status Description Data Source(s) Unknown Male Problem MEDENT ([facility]) Unknown Unknown Problem MEDENT ([facility]) Unknown Unknown Problem MEDENT ([facility]) Encounters Encounter Providers Location Date Indications Data Source(s ) Unknown [address] [facility] [address] 05/03/2020 12:00:00 AM EST eCW1 ([facility]) Outpatient Attender: Julia GUO PA-C Physical Therapy 03/31/2020 08:30:00 AM EST MEDENT ([facility]) Unknown [address] [facility] [address] 03/01/2020 12:00:00 AM EST eCW1 ([facility]) Outpatient Attender: Karey gambino 02/19/2020 04:05:00 PM EST MED[facility] ([facility] Outpatient [address] [facility] [address] 02/05/2020 12:00:00 AM EDT eCW1 ([facility]) Outpatient Attender: Julia GUO PA-C Physical Therapy 01/20/2020 10:30:00 AM EDT MEDENT ([facility]) Unknown [address] [facility] [address] 10/30/2019 12:00:00 AM EDT eCW1 ([facility]) Outpatient Attender: Daniel Mendes MD Physical Therapy 01/2020 11:00:00 AM EDT MEDENT ([facility]) Outpatient Attender: Daniel Mendes MD Physical Therapy 11/2019 03:30:00 PM EDT MEDENT ([facility]) Outpatient 04/23/2019 09:21:00 PM EST [facility] Outpatient 04/22/2019 02:08:00 PM EST [facility] OFFICE OUTPATIENT NEW 30 MINUTES Attender: SILVIA KENDRICK MD Ph ysical Therapy 03/31/2019 10:00:00 AM EST MEDENT ([facility]) Medications Medication Brand [...] active Potassium Chl oride 20 MEQ eCW1 ([facility]) Amoxicillin 875 MG / Clavulanate 125 MG Oral Tablet Am oxicillin/Clavulanate Potassium 02/19/2020 12:00:00 AM EST ORAL active MEDENT ([facility]) Fluticasone Propionate Fluticasone Propionate 02/19/2020 12:00:[address] active MEDENT ([facility]) 20 mEq 01/15/2020 12:00:00 AM EDT [...] type / Coverage type Policy ID Covered democrat ID Covered democrat's relationship to castellon Policy Castellon Plan Information [facility] [id number] SP [id number] [employer] WORKER COMP [id number] SP [id number] [employer] O [id number] S [id number] [facility] O [id number] S [id number] [facility] COMM[facility] [id number] SP [id number] [employer] O [id number] S [id number] MIRANDA [employer] WORKER COMP [id number] SP [id number] FIRST STUDENT [id number] SP [id number] [facility] Health Maintenance Organization (HMO) [id number] Self [id number] ANSI-Medicaid [id number] [facility] Health Maintenance Organization (O) [id number] Self [id number] [facility] COMMUN[facility] [id number] SP [id number] [facility] [id number] Self [id number] [facility] Health Maintenance Organization (HMO) Self HC COMMUNITY PL[facility] [id number] SP [id number] [facility] COMM[facility] [id number] SP [id number] [facility] Health Maintenance Organization (O) Self SELF PAY UNAVAILABLE SP UNAVAILA BLE BLUE CROSS [employer]ANNER PLAN [id number] SP [id number] MEDICAID [id number] SP [id number] HMO BLUE [id number] SP [id number] Problems, Conditions, and Diagnoses Code Display Name Description Problem Type Effective Dates Data Source(s) Z90.710 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 Problem 02/02/2020 12:00:00 AM EDT eCW1 ([facility]) 272.2 Mixed hyperlipidemia Mixed hyperlipidemia Problem 10/21/2019 12:00:00 AM EDT eCW1 ([facility]) Surgeries/Procedures Procedure Description Date Indications Data Source(s) RADEX WRIST COMPLETE MINIMUM 3 VIEWS 01/20/2020 12:00: 00 AM EDT MEDENT ([facility] RADEX WRIST 2 VIEWS 09/24/2019 12:00:00 AM EDT MEDENT ([facility] ) THERAPEUTIC PX 1/> AREAS EACH 15 MIN EXERCISES 12:00:00 AM EDT MEDENT ([facility] THERAPEUTIC PX 1/> AREAS EACH 15 MIN EXERCISES 12:00:00 AM EDT MEDENT ([facility] THERAPEUTIC PX 1/> AREAS EACH 15 MIN EXERCISES 12:00:00 AM EDT MEDENT ([facility] THERAPEUTIC PX 1/> AREAS EACH 15 MIN EXERCISES 12:00:00 AM EDT MEDENT ([facility] THERAPEUTIC PX 1/> AREAS EACH 15 MIN EXERCISES 12:00:00 AM EDT MEDENT ([facility] APPLICATION MODALITY 1/> AREAS HOT/COLD PACKS 07/14/19 12:00:00 AM EDT MEDENT ([facility] ) THERAPEUTIC PX 1/> AREAS EACH 15 MIN EXERCISES 12:00:00 AM EDT MEDENT ([facility] APPLICATION MODALITY 1/> AREAS HOT/COLD PACKS 07/09/19 20 12:00:00 AM EDT MEDENT ([facility] ) THERAPEUTIC PX 1/> AREAS EACH 15 MIN EXERCISES 12:00:00 AM EDT MEDENT ([facility] ) THERAPEUTIC PX 1/> AREAS EACH 15 MIN EXERCISES 12:00:00 AM EDT MEDENT ([facility] ) APPLICATION MODALITY 1/> AREAS HOT/COLD PACKS 07/07/19 20 12:00:00 AM EDT MEDENT ([facility] APPLICATION MODALITY 1/> AREAS HOT/COLD PACKS 07/02/19 12:00:00 AM EDT MEDENT ([facility]) THERAPEUTIC PX 1/> AREAS EACH 15 MIN EXERCISES 12:00:00 AM EDT MEDENT ([facility]) APPLICATION MODALITY 1/> AREAS HOT/COLD PACKS 06/30/19 12:00:00 AM EDT MEDENT ([facility]) THERAPEUTIC PX 1/> AREAS EACH 15 MIN EXERCISES 12:00:00 AM EDT MEDENT ([facility]) THERAPEUTIC PX 1/> AREAS EACH 15 MIN EXERCISES 12:00:00 AM EDT MEDENT ([facility]) APPLICATION MODALITY 1/> AREAS HOT/COLD PACKS 06/27/19 12:00:00 AM EDT MEDENT ([facility]) THERAPEUTIC PX 1/> AREAS EACH 15 MIN EXERCISES 12:00:00 AM EDT MEDENT ([facility]) THERAPEUTIC PX 1/> AREAS EACH 15 MIN EXERCISES 12:00:00 AM EDT MEDENT ([facility]) THERAPEUTIC PX 1/> AREAS EACH 15 MIN EXERCISES 12:00:00 AM EDT MEDENT ([facility]) THERAPEUTIC PX 1/> AREAS EACH 15 MIN EXERCISES 12:00:00 AM EDT MEDENT ([facility]) APPLICATION MODALITY 1/> AREAS HOT/COLD PACKS 06/25/19 12:00:00 AM EDT MEDENT ([facility]) APPLICATION MODALITY 1/> AREAS HOT/COLD PACKS 06/23/19 12:00:00 AM EDT MEDENT ([facility]) THERAPEUTIC PX 1/> AREAS EACH 15 MIN EXERCISES 12:00:00 AM EDT MEDENT ([facility]) THERAPEUTIC PX 1/> AREAS EACH 15 MIN EXERCISES 12:00:00 AM EDT MEDENT ([facility]) APPLICATION MODALITY 1/> AREAS HOT/COLD PACKS 06/20/19 20 12:00:00 AM EST MEDENT ([facility]) THERAPEUTIC PX 1/> AREAS EACH 15 MIN EXERCISES 12:00:00 AM EST MEDENT ([facility]) THERAPEUTIC PX 1/> AREAS EACH 15 MIN EXERCISES 12:00:00 AM EST MEDENT ([facility] ) APPLICATION MODALITY 1/> AREAS HOT/COLD PACKS 06/18/19 12:00:00 AM EST MEDENT ([facility] ) THERAPEUTIC PX 1/> AREAS EACH 15 MIN EXERCISES 12:00:00 AM EST MEDENT ([facility] ) THERAPEUTIC PX 1/> AREAS EACH 15 MIN EXERCISES 12:00:00 AM EST MEDENT ([facility] ) THERAPEUTIC PX 1/> AREAS EACH 15 MIN EXERCISES 12:00:00 AM EST MEDENT ([facility] ) THERAPEUTIC PX 1/> AREAS EACH 15 MIN EXERCISES 12:00:00 AM EST MEDENT ([facility] ) APPLICATION MODALITY 1/> AREAS HOT/COLD PACKS 06/16/19 12:00:00 AM EST MEDENT ([facility] ) APPLICATION MODALITY 1/> AREAS HOT/COLD PACKS 06/12/19 12:00:00 AM EST MEDENT ([facility] ) THERAPEUTIC PX 1/> AREAS EACH 15 MIN EXERCISES 12:00:00 AM EST MED[facility] ([facility] ) THERAPEUTIC PX 1/> AREAS EACH 15 MIN EXERCISES 12:00:00 AM EST MEDENT ([facility] Physical Therapy Eval - Low Complexity 06/10/2019 12:0 0:00 AM EST MEDENT ([facility] ) RADEX WRIST COMPLETE MINIMUM 3 VIEWS 05/27/2019 12:00: 00 AM EST MEDENT ([facility] ) RADEX WRIST 2 VIEWS 05/05/2019 12:00:00 AM EST MEDENT ([facility] Apply Splint Short Arm Static 04/18/2019 12:00:[address] MED[facility] ([facility] ) APPLICATION CAST ELBOW FINGER SHORT ARM 04/18/2019 12: 00:00 AM EST MEDENT ([facility] ) OPTX DSTL RADL I-ARTIC FX/EPIPHYSL SEP 3 FRAG 04/14/20 19 12:00:00 AM EST MEDENT ([facility] ) CLTX DSTL RDL FX/EPIPHYSL SEP W/MANJ WHEN PERF 019 12:00:00 AM EST MEDENT ([facility]) CLTX DSTL RDL FX/EPIPHYSL SEP W/MANJ WHEN PERF 019 12:00:00 AM EST MEDENT ([facility]) RADEX WRIST 2 VIEWS 03/31/2019 12:00:00 AM EST MED[facility] ([facility] ) RADEX WRIST 2 VIEWS 03/31/2019 12:00:00 AM EST MEDENT ([facility] ) Results ID Date Data Source [id number] 03/09/2020 12:00:00 AM EST [facility] Julia Knowles Pa-C Patient Name: VEENA WALLIS [facility] Date of : 1970[place] [address]- Date of Exam: 03/09/2020#: Fax: [phone] EXAM: [...] to previous ORIF asdescribed above.Accredited by the [employer] [employer] in [place].DAT Lozano/Yadira cade for referring TIARRA WALLIS to our office. Electronically Signed - LORENZA APONTE DO 03/10/20 15:30 Name Value Range Interpretation Code Description Data Rosalva rce(s) Supporting Document(s) Procedure Social History Code Duration Value Status Description Data Source(s ) Smoking 02/19/2020 12:00:00 AM EST Patient has never smoked co mpleted Patient has never smoked MEDENT ([facility]) Smoking 02/05/2020 12:00:00 AM EDT Never Smoker completed Never S moker eCW1 ([facility]) Smoking 02/05/2020 12:00:00 AM EDT Never Smoker completed Never S moker eCW1 ([facility]) Smoking 02/05/2020 12:00:00 AM EDT Never Smoker completed Never S moker eCW1 ([facility]) Vital Signs ID Date Data Source UNK Name Value Range Interpretation Code Description Data Source(s) Body mass index (BMI) [Ratio] 27.5 kg/m2 27.5 k g/m2 [facility] Body height 65 [in_i] 65 [in_i] MEDENT ([facility]) 5'5" Body weight 165.00 [lb_av] 165.00 [lb_av] MEDEN T ([facility]) Body temperature 97.3 [degF] 97.3 [degF] [facility] Oxygen saturation in Arterial blood by Pulse oximetry 98 % 98 % [facility] ([facility]) Respiratory rate 14 /min 14 /min [facility] ( [facility]) Heart rate 85 /min 85 /min [facility] ([facility], [facility]) Diastolic blood pressure 85 mm[Hg] 85 mm[Hg] MEDENT ([facility]) Systolic blood pressure 132 mm[Hg] 132 mm[Hg] M EDENT ([facility], [facility]) Diastolic blood pressure 84 mm[Hg] 84 mm[Hg] eCW1 ([facility]) Systolic blood pressure 142 mm[Hg] 142 mm[Hg] e CW1 ([facility]) Body mass index (BMI) [Ratio] 25.96 kg/m2 25.96 kg/m2 W1 ([facility]) Body height 65 [in_i] 65 [in_i] [facility] ([facility]) Body weight 70.76 kg 70.76 kg [facility] ([facility]) Body weight 156 [lb_av] 156 [lb_av] W1 ([facility]) Body mass index (BMI) [Ratio] 27.5 kg/m2 27.5 k g/m2 MEDENT ([facility] Body weight 164.00 [lb_av] 164.00 [lb_av] MEDEN T ([facility] ) Body height 64.75 [in_i] 64.75 [in_i] MEDENT ([facility]) 5'4.75" Body temperature 98.1 [degF] 98.1 [degF] MEDENT ([facility] Patient Treatment Plan of Care Planned Activity Planned Date Details Description Data Source (s) Potassium Chloride 20 MEQ 05/04/2020 12:00:00 AM EST eCW1 ([facility])
[2020-05-17] MEDS ORDERED: BOOSTRIX/ADACEL VACCINE (DIPHTH/PERTUSS/ACELL/TETANUS) 0.5ML SYR IM ONE (14:45)
[2020-05-17] MEDS ORDERED: CEPHALEXIN 500 MG CAP PO ONE (14:45)
[2020-05-17] MEDS ORDERED: LIDOCAINE 1% MDV 20ML VIAL IM ONE (14:45)
[2020-05-17] MEDS ORDERED: CEPH500C PO (15:16)
[2020-05-17 15:33] VITALS: BP 128/77
== END 2020-05-17 15:35 | disposition home or self-care (01) ==
LOC: M ED 12:06
DX: S66.921A Laceration of unspecified muscle, fascia and tendon at wrist and hand level, right hand, initial encounter (principal); W26.0XXA Contact with knife, initial encounter; Y92.018 Other place in single-family (private) house as the place of occurrence of the external cause; Y93.G9 Activity, other involving cooking and grilling; I10 Essential (primary) hypertension; E11.9 Type 2 diabetes mellitus without complications; E78.5 Hyperlipidemia, unspecified; Z79.899 Other long term (current) drug therapy; Z88.1 Allergy status to other antibiotic agents

== ENCOUNTER → 2021-11-08 | Outpatient (CLI) | payer OTHER ==
[~2021-11-08] MED LIST changes: +CEPH500C PO; +ERGO500029; -HM P99TA PO; +OMEP-173 PO; -OMEP-218 PO; +POTA-151; +POTA99TA14 PO
== END ==
LOC: M WHC 13:07
PROVIDERS: ATTEND Nurse Practitioner Adult Health
DX: Z12.31 Encounter for screening mammogram for malignant neoplasm of breast (principal)

== ENCOUNTER → 2022-02-24 | Outpatient (CLI) | payer OTHER ==
[2022-02-24 12:40] LABS: HEMATOCRIT 40.7 % (36.0-47.0); HEMOGLOBIN 13.3 g/dl (12.0-15.5); MEAN CORPUSCULAR HEMOGLOBIN 28.2 pg (27.0-33.0); MEAN CORPUSCULAR HGB CONC 32.7 g/dl (32.0-36.5); MEAN CORPUSCULAR VOLUME 86.2 fl (80.0-96.0); PLATELET COUNT, AUTOMATED 210 10^3/uL (150-450); RED BLOOD COUNT 4.72 10^6/uL (4.00-5.40); WHITE BLOOD COUNT 5.6 10^3/uL (4.0-10.0)
[2022-02-24 13:32] LABS: ALBUMIN 3.8 GM/DL (3.2-5.2); ALT/SGPT 27 U/L (12-78); BILIRUBIN,TOTAL 0.7 MG/DL (0.2-1.0); BLOOD UREA NITROGEN 11 MG/DL (7-18); CALCIUM LEVEL 9.1 MG/DL (8.5-10.1); CARBON DIOXIDE LEVEL 29 MEQ/L (21-32); CHLORIDE LEVEL 104 MEQ/L (98-107); CREATININE FOR GFR 0.75 MG/DL (0.55-1.30); GLOMERULAR FILTRATION RATE > 60.0 (>51); GLUCOSE, FASTING 107 MG/DL (70-100); POTASSIUM SERUM 3.9 MEQ/L (3.5-5.1); SODIUM LEVEL 140 MEQ/L (136-145); TOTAL PROTEIN 7.2 GM/DL (6.4-8.2)
[2022-02-24 14:14] LABS: TOTAL 25(OH) VITAMIN D 17.7 NG/ML (30.0-100.0)
[2022-02-24 14:15] LABS: VITAMIN B12 LEVEL 363 PG/ML (247-911)
[2022-02-24 14:22] LABS: HEMOGLOBIN A1c 5.8 %
== END ==
LOC: M WUC 10:05
PROVIDERS: ATTEND Nurse Practitioner Adult Health
DX: Z83.3 Family history of diabetes mellitus (principal); E55.9 Vitamin D deficiency, unspecified; Z98.84 Bariatric surgery status

== ENCOUNTER → 2022-07-17 | Outpatient (CLI) | payer OTHER | LOC: M PLAIMG 10:38 | PROVIDERS: ATTEND Nurse Practitioner Adult Health | DX: M25.561 Pain in right knee (principal) ==

== ENCOUNTER → 2023-08-13 | Outpatient (CLI) | payer OTHER ==
[2023-08-13 12:54] LABS: HEMATOCRIT 42.9 % (36.0-47.0); MEAN CORPUSCULAR HEMOGLOBIN 28.5 pg (27.0-33.0); MEAN CORPUSCULAR HGB CONC 32.6 g/dl (32.0-36.5); MEAN CORPUSCULAR VOLUME 87.2 fl (80.0-96.0); PLATELET COUNT, AUTOMATED 193 10^3/uL (150-450); RED BLOOD COUNT 4.92 10^6/uL (4.00-5.40); WHITE BLOOD COUNT 6.2 10^3/uL (4.0-10.0)
[2023-08-13 12:58] LABS: FERRITIN 17.9 NG/ML (7.3-270.7); THYROID STIMULATING HORMONE 1.888 uIU/ML (0.55-4.78); TOTAL 25(OH) VITAMIN D 36.7 NG/ML (20.0-100.0)
[2023-08-13 13:00] LABS: FREE T4 0.89 NG/DL (0.89-1.76); VITAMIN B12 LEVEL 552 PG/ML (211-911)
[2023-08-13 13:04] LABS: ALKALINE PHOSPHATASE 113 U/L (46-116); ALT/SGPT 22 U/L (7.0-40); AST/SGOT 21 U/L (<34); BILIRUBIN,TOTAL 0.6 MG/DL (0.3-1.2); BLOOD UREA NITROGEN 10 MG/DL (9-23); CALCIUM LEVEL 8.9 MG/DL (8.5-10.1); CARBON DIOXIDE LEVEL 29 MMOL/L (20-31); CHLORIDE LEVEL 105 MMOL/L (98-107); CHOLESTEROL LEVEL 264 MG/DL (<200); CHOLESTEROL RISK RATIO 4.42 (<5); CREATININE FOR GFR 0.61 MG/DL (0.55-1.30); GLOMERULAR FILTRATION RATE > 60.0 (>51); GLUCOSE, FASTING 95 MG/DL (60-100); HDL CHOLESTEROL 59.7 MG/DL (>40); IRON (FE) 89 UG/DL (50-170); LDL CHOLESTEROL 181.3 MG/DL (<100); NON-HDL-C 204.3 MG/DL; PERCENT SATURATION 26.8 % (13.2-45.0); POTASSIUM SERUM 4.6 MMOL/L (3.5-5.1); SODIUM LEVEL 138 MMOL/L (136-145); TOTAL IRON BINDING CAPACITY 332 UG/DL (250-425); TOTAL PROTEIN 6.7 G/DL (5.7-8.2); TRIGLYCERIDES LEVEL 115 MG/DL (<150)
[2023-08-13 13:17] LABS: HEMOGLOBIN A1c 5.4 % (4.0-6.0)
== END ==
LOC: M PLALAB 10:57
PROVIDERS: ATTEND Nurse Practitioner Adult Health
DX: E78.2 Mixed hyperlipidemia (principal); Z98.84 Bariatric surgery status; R73.01 Impaired fasting glucose

== ENCOUNTER → 2023-08-22 | Outpatient (CLI) | payer OTHER, SELFPAY | LOC: M WHC 09:54 | PROVIDERS: ATTEND Nurse Practitioner Adult Health | DX: Z12.31 Encounter for screening mammogram for malignant neoplasm of breast (principal) ==

== ENCOUNTER → 2024-06-02 | Outpatient (CLI) | payer OTHER ==
[2024-06-02 14:05] LABS: HEMATOCRIT 40.7 % (36.0-47.0); HEMOGLOBIN 13.3 g/dl (12.0-15.5); MEAN CORPUSCULAR HEMOGLOBIN 28.3 pg (27.0-33.0); MEAN CORPUSCULAR HGB CONC 32.7 g/dl (32.0-36.5); MEAN CORPUSCULAR VOLUME 86.6 fl (80.0-96.0); PLATELET COUNT, AUTOMATED 198 10^3/uL (150-450); WHITE BLOOD COUNT 4.8 10^3/uL (4.0-10.0)
[2024-06-02 14:43] LABS: ALKALINE PHOSPHATASE 95 U/L (35-104); ALT/SGPT 21 U/L (7.0-40); AST/SGOT 22 U/L (<34); BILIRUBIN,TOTAL 0.6 MG/DL (0.3-1.2); BLOOD UREA NITROGEN 13 MG/DL (9-23); CALCIUM LEVEL 9.2 MG/DL (8.5-10.1); CARBON DIOXIDE LEVEL 29 MMOL/L (20-31); CHLORIDE LEVEL 105 MMOL/L (98-107); CHOLESTEROL LEVEL 206 MG/DL (<200); CREATININE FOR GFR 0.63 MG/DL (0.55-1.30); FERRITIN 32.4 NG/ML (7.3-270.7); FREE T4 1.01 NG/DL (0.89-1.76); GLOMERULAR FILTRATION RATE > 60.0 (>51); GLUCOSE, FASTING 111 MG/DL (60-100); HDL CHOLESTEROL 45.7 MG/DL (>40); LDL CHOLESTEROL 128.1 MG/DL (<100); NON-HDL-C 160.3 MG/DL; POTASSIUM SERUM 3.9 MMOL/L (3.5-5.1); SODIUM LEVEL 144 MMOL/L (136-145); THYROID STIMULATING HORMONE 2.641 uIU/ML (0.55-4.78); TOTAL 25(OH) VITAMIN D 31.8 NG/ML (20.0-100.0); TOTAL PROTEIN 6.9 G/DL (5.7-8.2); TRIGLYCERIDES LEVEL 161 MG/DL (<150); VITAMIN B12 LEVEL 778 PG/ML (211-911)
[2024-06-02 14:44] LABS: HEMOGLOBIN A1c 5.5 % (4.0-6.0)
== END ==
LOC: M PLALAB 10:10
PROVIDERS: ATTEND Nurse Practitioner Adult Health
DX: E78.2 Mixed hyperlipidemia (principal); Z98.84 Bariatric surgery status

== ENCOUNTER 2024-08-01 20:39 | Emergency (ER) | payer OTHER ==
[~2024-08-01] VITALS: Ht 165.1 cm; Wt 80.0 kg
[2024-08-01 21:32] LABS: BASO # 0.1 10^3/uL (0.0-0.2); BASO % 0.6 % (0.0-1.0); EOS # 0.2 10^3/uL (0.0-0.5); EOS % 1.9 % (0.0-3.0); HEMATOCRIT 40.4 % (36.0-47.0); HEMOGLOBIN 13.3 g/dl (12.0-15.5); LYMPH # 2.9 10^3/uL (1.5-5.0); LYMPH % 34.9 % (24.0-44.0); MEAN CORPUSCULAR HEMOGLOBIN 28.5 pg (27.0-33.0); MEAN CORPUSCULAR HGB CONC 32.9 g/dl (32.0-36.5); MEAN CORPUSCULAR VOLUME 86.7 fl (80.0-96.0); MONO # 0.5 10^3/uL (0.0-0.8); MONO % 6.2 % (2.0-8.0); NEUTROPHILS # 4.7 10^3/uL (1.5-8.5); NEUTROPHILS % 56.3 % (36.0-66.0); PLATELET COUNT, AUTOMATED 220 10^3/uL (150-450); RED BLOOD COUNT 4.66 10^6/uL (4.00-5.40); WHITE BLOOD COUNT 8.3 10^3/uL (4.0-10.0)
[2024-08-01 21:54] LABS: BLOOD UREA NITROGEN 12 MG/DL (9-23); CALCIUM LEVEL 8.7 MG/DL (8.5-10.1); CARBON DIOXIDE LEVEL 28 MMOL/L (20-31); CHLORIDE LEVEL 105 MMOL/L (98-107); CREATININE FOR GFR 0.63 MG/DL (0.55-1.30); GLOMERULAR FILTRATION RATE > 90.0 (>51); GLUCOSE, FASTING 119 MG/DL (60-100); POTASSIUM SERUM 3.9 MMOL/L (3.5-5.1); SODIUM LEVEL 143 MMOL/L (136-145)
[2024-08-01 23:40] LABS: CK-MB VALUE MASS < 1.0 NG/ML (<3.6); MAGNESIUM LEVEL 2.4 MG/DL (1.8-2.4)
[2024-08-01 23:45] LABS: THYROID STIMULATING HORMONE 2.869 uIU/ML (0.55-4.78)
[2024-08-02 00:21] LABS: CPK CREATINE PHOSPHOKINASE 148 U/L (34-145); MB/CK RELATIVE INDEX 0.67 (< OR =4)
[2024-08-02 01:19] LABS: CK-MB VALUE MASS < 1.0 NG/ML (<3.6)
[2024-08-02 01:21] LABS: CPK CREATINE PHOSPHOKINASE 137 U/L (34-145); MB/CK RELATIVE INDEX 0.72 (< OR =4)
[2024-08-02 02:00] VITALS: BP 149/91; TEMP 98.9; O2SAT 98
== END 2024-08-02 02:20 | disposition home or self-care (01) ==
LOC: M ED 20:39
DX: R55 Syncope and collapse (principal); I45.81 Long QT syndrome; E78.5 Hyperlipidemia, unspecified; K21.9 Gastro-esophageal reflux disease without esophagitis; E55.9 Vitamin D deficiency, unspecified; Z88.1 Allergy status to other antibiotic agents; Z79.1 Long term (current) use of non-steroidal anti-inflammatories (NSAID); Z79.2 Long term (current) use of antibiotics; Z79.810 Long term (current) use of selective estrogen receptor modulators (SERMs); Z79.899 Other long term (current) drug therapy

== ENCOUNTER 2024-08-08 10:52 | Emergency (ER) | payer OTHER ==
[~2024-08-08] VITALS: Ht 165.1 cm; Wt 78.8 kg
[~2024-08-08 10:52] MED LIST changes: -FLOM0.4C39 PO; +TAMS-18 PO
[2024-08-08 17:00] VITALS: TEMP 99.2
[2024-08-08 20:28] LABS: BASO % 0.4 % (0.0-1.0); EOS % 0.4 % (0.0-3.0); HEMOGLOBIN 13.5 g/dl (12.0-15.5); LYMPH # 1.5 10^3/uL (1.5-5.0); LYMPH % 19.7 % (24.0-44.0); MEAN CORPUSCULAR HEMOGLOBIN 28.2 pg (27.0-33.0); MEAN CORPUSCULAR HGB CONC 32.9 g/dl (32.0-36.5); MEAN CORPUSCULAR VOLUME 85.6 fl (80.0-96.0); MONO # 0.5 10^3/uL (0.0-0.8); MONO % 6.4 % (2.0-8.0); NEUTROPHILS # 5.7 10^3/uL (1.5-8.5); NEUTROPHILS % 72.8 % (36.0-66.0); PLATELET COUNT, AUTOMATED 224 10^3/uL (150-450); RED BLOOD COUNT 4.79 10^6/uL (4.00-5.40); WHITE BLOOD COUNT 7.8 10^3/uL (4.0-10.0)
[2024-08-08 21:01] LABS: BLOOD UREA NITROGEN 11 MG/DL (9-23); CALCIUM LEVEL 9.2 MG/DL (8.5-10.1); CARBON DIOXIDE LEVEL 28 MMOL/L (20-31); CHLORIDE LEVEL 104 MMOL/L (98-107); CREATININE FOR GFR 0.54 MG/DL (0.55-1.30); GLOMERULAR FILTRATION RATE > 90.0 (>51); GLUCOSE, FASTING 101 MG/DL (60-100); POTASSIUM SERUM 4.1 MMOL/L (3.5-5.1); SODIUM LEVEL 141 MMOL/L (136-145)
[2024-08-08] MEDS: MECLIZINE 25 MG TABLET PO ONE (21:55)
[2024-08-08 22:20] LABS: INR 1.01; PARTIAL THROMBOPLASTIN TIME 31.2 SECONDS (24.8-34.2); PROTHROMBIN TIME 13.6 SECONDS (12.5-14.5)
[2024-08-08 22:54] VITALS: O2SAT 98
[2024-08-08 23:00] VITALS: BP 165/86
[2024-08-08] MEDS ORDERED: MECL-209 PO (23:01)
[2024-08-08] MEDS ORDERED: FLON1SPR NARES (23:01)
== END 2024-08-08 23:25 | disposition home or self-care (01) ==
LOC: M ED 10:52
DX: H81.4 Vertigo of central origin (principal); I10 Essential (primary) hypertension; E78.5 Hyperlipidemia, unspecified; K21.9 Gastro-esophageal reflux disease without esophagitis; F41.9 Anxiety disorder, unspecified; F10.10 Alcohol abuse, uncomplicated; Z88.1 Allergy status to other antibiotic agents; Z79.1 Long term (current) use of non-steroidal anti-inflammatories (NSAID); Z79.2 Long term (current) use of antibiotics; Z79.899 Other long term (current) drug therapy; Z79.810 Long term (current) use of selective estrogen receptor modulators (SERMs)